=== PATIENT | male | born 1975 | race Caucasian/White ===

== ENCOUNTER 2016-06-07 17:21 | Observation (INO) ==
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
[2016-06-07 18:00] LABS: Bilirubin,Urine Small (Negative); Blood,Urine Negative (Negative); Clarity,Urine Cloudy (Clear); Color,Urine Dark Yellow (Yellow); Glucose,Urine (UA) Normal (Normal); Ketones,Urine Negative (Negative); Leukocyte Esterase,Urine Negative (Negative); Nitrite,Urine Negative (Negative); Protein,Urine 30 mg/dL (Neg-Trace); Specific Gravity,Urine 1.027 (1.010-1.025); Urobilinogen,Urine Normal (Normal)
[2016-06-07 18:03] LABS: Bacteria,Urine None Seen per hpf (None-Few); Hyaline Casts,Urine None Seen per lpf (None-Few); Squamous Epithelial Cell,Urine Many per lpf (None-Few); WBC,Urine 0-3 per hpf (0-3)
[2016-06-07 18:05] LABS: Amphetamine Screen,Urine Negative ng/mL (Cutoff=1000); Barbiturate Screen,Urine Negative ng/mL (Cutoff=200); Benzodiazepines Screen,Urine Negative ng/mL (Cutoff=200); Cannabinoid Screen,Urine Positive ng/mL (Cutoff = 50); Cocaine Screen,Urine Negative ng/mL (Cutoff= 300); Opiate Screen,Urine Negative ng/mL (Cutoff=300); Phencyclidine Screen,Urine Negative ng/mL (Cutoff=25)
[2016-06-07 18:17] LABS: Mucus,Urine Many (Few)
[2016-06-07 18:25] LABS: Hematocrit 40.5 % (37.5-50.1); Hemoglobin 13.6 g/dL (12.9-16.9); Immature Platelets 4.1 % (1.1-6.1); Mean Corpuscular HGB Conc 33.6 g/dL (31.6-35.5); Mean Corpuscular Hemoglobin 28.9 pg (28.0-33.3); Mean Corpuscular Volume 86.2 fL (83.0-100.0); Mean Platelet Volume 9.7 fL (9.4-12.4); Platelet Count 313 K/mcL (140-400); Red Cell Distribution Width 14.5 % (11.5-14.5)
[2016-06-07 18:38] LABS: BUN/Creatinine Ratio 10 (6-26); Blood Urea Nitrogen 9 mg/dL (8-26); Calcium 9.6 mg/dL (8.6-10.8); Carbon Dioxide 24 mEq/L (19-29); Chloride 104 mEq/L (98-109); Glucose 179 mg/dL (70-99); Osmolality,Calculated 293 (280-300); Potassium 3.4 mEq/L (3.5-4.5); Sodium 140 mEq/L (136-145); eGFR For African Americans > 60 (> 60); eGFR For Non-African Americans > 60 (> 60)
[2016-06-07 18:39] LABS: Acetaminophen < 1.0 mcg/mL (10-30); Ethanol < 10 mg/dL (0-10); Salicylate < 5.0 mg/dL (15-30)
[2016-06-07 18:50] LABS: Lymphocytes # 5.3 K/mcL (0.6-4.6); Monocytes # 0.6 K/mcL (0.0-1.3); Neutrophils # 23.7 K/mcL (1.6-8.9)
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
[2016-06-08 00:27] LABS: Albumin 4.2 g/dL (3.5-5.0); Albumin/Globulin Ratio 1.4 (1.1-2.2); Bilirubin,Direct 0.1 mg/dL (0.0-0.5); Bilirubin,Indirect 0.1 mg/dL (0.0-1.2); Bilirubin,Total 0.2 mg/dL (0.2-1.2); Total Protein 7.2 g/dL (6.0-8.3)
[2016-06-08] MEDS ORDERED: *HR* LORazepam 1 MG TABLET PO ONE (01:53)
[2016-06-08] MEDS: Nicotine 14 MG PATCH.TD24 TD SCH ×2 (02:04→09:15)
--- NOTE | 2016-06-08 04:53 | Emergency Department Note ---
START Narrative - START START: For this encounter, I have reviewed the resident, VALUE STREAM COACH, or PA documentation, treatment plan, and medical decision making; and I have had face to face time with this patient. Patient received signout from Dr. Hernandez pending behavioral health evaluation and disposition. Patient has a leukocytosis however he does not have headache, neck pain or any other symptoms despite his psychosis. Patient continues to deny suicidal ideation or homicidal ideation. Patient reports she has been significantly more paranoid over the past week. Behavioral health specialist recommended that he be admitted to the hospital for continuation of his care however they did not feel that he was appropriate to be on the psychiatric floor due to his leukocytosis. Patient will be admitted to the hospitalist with psychiatric consult for continuation of care. Patient is comfortable with the plan.
--- NOTE | 2016-06-08 05:21 | Internal Med History&Physical ---
Date of Encounter: 06/08/16 Time of Encounter: 04:00 Assessment and Plan (1) Leukocytosis Current visit: Yes Status: Acute Patient had WBC of 29.6 with Neutrophils of 23.7- etiology unclear at this time. vitals within normal limits, lactate normal. Patient does not meet SIRS criteria at this time. UDS was positive for marijuana- will repeat. Physical exam does not indicate signs of meningitis. Blood cultures x2 pending Urinalysis did not show signs of UTI. CXR showed no acute process. CT head showed no acute abnormality. CT abdomen/pelvis with IV and oral contrast pending. received 1L bolus x2. CRP, CMV, ESR, influenza swab, EBV monospot test pending. Empiric antibiotics not indicated at this time. Continue to monitor. Qualifiers: Leukocytosis type: unspecified Qualified Code(s): D72.829 - Elevated white blood cell count, unspecified (2) Acute psychosis Current visit: Yes Status: Acute Patient has no psych history. Denies suicidal/homicidal ideation. Since , he has had episodes of extreme paranoia and anxiety. Patient has been under a lot of stress lately with his son going to a juvenile retirement center, and not being able to pay his property taxes. Consult to psychiatry for recommendations. (3) Hypokalemia Current visit: Yes Status: Acute potassium measured at 3.4. Patient received 20 mEq of oral potassium in ED. (4) Marijuana use Current visit: Yes Status: Chronic patient counseled on dangers of illicit drug use. (5) Tobacco abuse Current visit: Yes Status: Acute nicotine patch as needed. (6) DVT prophylaxis Current visit: Yes Status: Acute Heparin SQ Internal Medicine - H&P: HPI Chief complaint: altered mental status Admitted From: Emergency Dept Plans for Post Hospital Care: Home History of present illness: PCP: none Mr. Frank is a 41 year old male with no significant past medical or psych history. He came to the ED with CC of altered mental status. His girlfriend and his sister came to the ED with him. He states that he has had several episodes of paranoia and anxiety that started last . He [place] where there is a lot of drug use. He states that since , he was having episodes of being very scared and paranoid that someone would come and harm him. He would run away, go to his sister's house, shut the door and all the blinds, shut the lights off, and crawl on the floor. Per his sister, he never had any episodes of violence towards others. These episodes of paranoia would last a variable amount of time, and happened multiple times a day. Patient denies suicidal or homicidal ideation. He denies auditory hallucinations. His sister states that he would have visual hallucinations of people standing outside the house waiting for him. Patient has been under a lot of stress recently. His property taxes are due tomorrow, and he does not have the money to pay them. Furthermore, his son was recently sent to a juvenile retirement center, which he is stressed about because he has a very close relationship with his son. Patient denies having a past psych history. He denies subjective fevers, but reports chills. He denies diarrhea. He says he has mild neck pain that is chronic. He denies shortness of breath, and denies being bothered by bright lights. He denies headache, recent trauma, denies concern for STDs. He reports to being very fatigued. He had nausea and two episodes of vomiting on Monday. Recent sick contact includes his son, who had the stomach virus and had nausea and vomiting. Social Hx: lives with his girlfriend and their two children. He smokes 1.5 PPD for the past 30 years. Rarely drinks. Denies history of alcohol abuse. Smokes 1 joint of marijuana per day. He states he always buys his marijuana from the same supplier, and denies use of synthetic marijuana. He denies current or any history of IV drug use. Family Hx: Mom: alive with no reported health problems. Father is alive with no reported health problems. His paternal grandfather of lung cancer. Maternal grandmother had cervical caner. Past Med Surg Social Fam HX - Past Medical History Medical history: no medical history Psychiatric history: no psych history - Social History Smoking Status: Current every day smoker Smokeless Tobacco Status: No Alcohol use: occasionally Drug use: marijuana Internal Medicine - H&P: Meds Allergies No Known Allergies Allergy (Verified 06/07/16 17:23) All Systems PM: A 10-system review of systems was performed and is negative for pertinent findings except as documented above in the HPI. - Constitutional Constitutional: chills, lethargy, no fever(s) - EENT Eyes: no blurry vision, no photophobia, no seeing flashes - Cardiovascular Cardiovascular ROS IM: no dyspnea, no syncope - Respiratory Respiratory: no cough, no dyspnea - Gastrointestinal Gastrointestinal: vomiting (two episodes of vomiting on Monday. ), no abdominal pain, no bloating, no diarrhea, no hematochezia, no melena - Genitourinary Genitourinary ROS male: no hematuria - Musculoskeletal Musculoskeletal ROS IM: neck pain (chronic neck pain) - Neurological Neurological ROS: weakness, no abnormal gait, no abnormal hearing, no dizziness - Psychiatric Psychiatric: anxiety, change in appetite (decreased appetite), visual hallucinations, no auditory hallucinations, no homicidal ideation - Constitutional Vitals: Temp Pulse Resp BP Pulse Ox 0 F L 88 16 128/7 98 06/08/16 04:47 06/08/16 04:25 06/08/16 04:47 06/08/16 04:47 06/08/16 04:25 General appearance: Present: A&O X 3, no acute distress, answers questions appropriately - Head Head exam: Present: atraumatic, normocephalic - Neck Neck exam general surgery: Present: trachea midline. Absent: full ROM (limited range of motion in flexion more than extension), lymphadenopathy, nuchal rigidity Additional comments: kernig and bruzinski's sign were negative. - Respiratory Respiratory exam: Present: rhonchi - Cardiovascular Cardiovascular exam: Present: RRR - GI/Abdominal GI/Abdominal exam: Present: normal bowel sounds, soft. Absent: distended, tenderness - Extremities Exam Extremities exam: Absent: cyanotic, pedal edema, tenderness - Neurological Exam Neurological exam: Present: alert, oriented X3, no focal deficits. Absent: facial droop, speech deficit - Psychiatric Psychiatric exam: Present: normal affect, normal mood. Absent: anxious Internal Med - H&P Results - Labs CBC & Chem 7: 06/07/16 18:01 06/07/16 18:01 Labs: Short CBC 06/07/16 Range/Units 18:01 WBC 29.6 H (4.3-11.1) K/mcL Hgb 13.6 (12.9-16.9) g/dL Hct 40.5 (37.5-50.1) % Plt Count 313 (140-400) K/mcL Neutrophils # 23.7 H (1.6-8.9) K/mcL BMP 06/07/16 18:01 Sodium 140 Potassium 3.4 L Chloride 104 Carbon Dioxide 24 BUN 9 Creatinine 0.90 Glucose 179 H Calcium 9.6 Liver Function 06/08/16 Range/Units 00:06 Total Bilirubin 0.2 (0.2-1.2) mg/dL Direct Bilirubin 0.1 (0.0-0.5) mg/dL AST 12 (5-34) Units/L ALT 16 (0-55) Units/L Alkaline Phosphatase 63 (38-126) Units/L Albumin 4.2 (3.5-5.0) g/dL Urine 06/07/16 Range/Units 17:51 Urine Color Dark Yellow (Yellow) Urine Clarity Cloudy A (Clear) Urine pH 6.0 (5.0-8.0) pH Units Ur Specific [place] 1.027 H (1.010-1.025) Urine Protein 30 H (Neg-Trace) mg/dL Urine Glucose (UA) Normal (Normal) mg/dL - Impressions ITS Impressions Chest X-Ray 06/07/16 18:29 IMPRESSION: No acute process. D/ / Christos Hirsch MD / Christos Hirsch MD Interpreting Provider: Christos Hirsch MD Head CT 06/07/16 23:41 IMPRESSION: No acute intracranial abnormality. D/ / Jimena Norris MD / Jimena Norris MD Interpreting Provider: Jimena Norris MD
[2016-06-08] MEDS ORDERED: Acetaminophen 325 MG TABLET PO PRN (05:37)
[2016-06-08] MEDS ORDERED: Naloxone 0.4 MG/ML INJ IVP PRN (05:37)
[2016-06-08] MEDS ORDERED: Ondansetron 4 MG/2 ML VIAL IVP PRN (05:37)
[2016-06-08] MEDS: 0.9 % Sodium Chloride 2,000 ML IVC ONE ×2 (05:47→06:52)
--- NOTE | 2016-06-08 05:59 | Event Note ---
Date of Encounter: 06/08/16 Time of Encounter: 05:56 Patient seen and examined with medical residents agree with assessment and plan. Briefly patient comes with acute psychosis that is fluctuating in nature. He is alert and oriented times 3 during our interview. Main concern that he is having a light count of 29,000. He had the recent viral syndrome and mentioned that his son was sick before him. Patient has been nauseous for 5 days not eating well and had couple episodes of vomiting chills. Patient also takes marijuana on daily basis. He denies synthetic marijuana. Patients will also on the loss of stress recently. Patient showing no convincing clinical symptoms or signs of meningitis. I will therefore hold off lumbar puncture for now. I will hydrate the patient. CT scan of the abdomen and conscious. Hold of antibiotics.
[2016-06-08 06:01] LABS: Basophils % 0.3 %; Eosinophils # 0.2 K/mcL (0.0-0.6); Eosinophils % 1.4 %; Hematocrit 36.4 % (37.5-50.1); Hemoglobin 12.2 g/dL (12.9-16.9); Immature Granulocytes % 0.2 % (0-4); Immature Platelets 2.9 % (1.1-6.1); Lymphocytes # 3.6 K/mcL (0.6-4.6); Lymphocytes % 31.7 %; Mean Corpuscular HGB Conc 33.5 g/dL (31.6-35.5); Mean Corpuscular Volume 86.5 fL (83.0-100.0); Mean Platelet Volume 9.5 fL (9.4-12.4); Monocytes # 0.7 K/mcL (0.0-1.3); Monocytes % 6.1 %; Neutrophils # 6.8 K/mcL (1.6-8.9); Platelet Count 262 K/mcL (140-400); Red Blood Count 4.21 M/mcL (4.19-5.50); Red Cell Distribution Width 14.6 % (11.5-14.5); Segmented Neutrophils % 60.3 %
[2016-06-08 06:16] LABS: BUN/Creatinine Ratio 10 (6-26); Blood Urea Nitrogen 9 mg/dL (8-26); C-Reactive Protein 4 mg/L (Less than 5); Calcium 9.3 mg/dL (8.6-10.8); Carbon Dioxide 30 mEq/L (19-29); Chloride 106 mEq/L (98-109); Glucose 93 mg/dL (70-99); Osmolality,Calculated 292 (280-300); Sodium 142 mEq/L (136-145); eGFR For African Americans > 60 (> 60); eGFR For Non-African Americans > 60 (> 60)
[2016-06-08] MEDS: *HR* Heparin 5,000 UNIT/ML VIAL SQ SCH ×2 (06:58→18:47)
[2016-06-08 08:34] LABS: Amphetamine Screen,Urine Negative ng/mL (Cutoff=1000); Barbiturate Screen,Urine Negative ng/mL (Cutoff=200); Benzodiazepines Screen,Urine Negative ng/mL (Cutoff=200); Cannabinoid Screen,Urine Positive ng/mL (Cutoff = 50); Cocaine Screen,Urine Negative ng/mL (Cutoff= 300); Opiate Screen,Urine Negative ng/mL (Cutoff=300); Phencyclidine Screen,Urine Negative ng/mL (Cutoff=25)
[2016-06-08] MEDS ORDERED: Nicotine 14 MG PATCH.TD24 TD SCH (09:00)
[2016-06-08] MEDS ORDERED: *HR* LORazepam 0.5 MG TABLET PO ONE (12:57)
[2016-06-08] MEDS: *HR* LORazepam 2 MG/ML VIAL IVP PRN (15:30)
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
--- NOTE | 2016-06-08 17:14 | Internal Med Progress Note ---
Date of Encounter: 06/08/16 Time of Encounter: 11:30 - Assessment and plan (1) Acute psychosis Current Visit: Yes Status: Acute Assessment and plan: Follow psych recs For transfer to psych once WBC is stabilized Continue Ativan prn (2) Leukocytosis Current Visit: Yes Status: Acute Assessment and plan: Possibly from dehydration and acute stress NO current source No suspicion for intracranial infection D/C IVF and rpt CBC a.m Qualifiers: Leukocytosis type: unspecified Qualified Code(s): D72.829 - Elevated white blood cell count, unspecified (3) Tobacco abuse Current Visit: Yes Status: Chronic Assessment and plan: Continue NRT (4) Marijuana use Current Visit: Yes Status: Chronic - Subjective Interval history: 41 Y/O M with no PMH Here for management of acute delirium and paranoid psychosis He had an incidental finding of leukocytosis, without fever Preliminary work up shows no source Head CT, CXR, UA, LFT, Chem, all WNL Influenza, Infectious mononucleosis negative Utox positive for THC Of note, WBC has decreased from 29.6 to 11.4, and patient remains afebrile He remains paranoid and is pending psych eval at my time of review in the a.m - Constitutional Vitals: Temp Pulse Resp BP Pulse Ox 98 F 73 16 108/69 96 06/08/16 15:20 06/08/16 15:20 06/08/16 15:20 06/08/16 15:20 06/08/16 15:20 General appearance: Present: A&O X 3, pleasant, no acute distress, answers questions appropriately - Head Head exam: Present: atraumatic, normocephalic - Eye Eye exam: Present: PERRL, conjuntiva pink, sclera anicteric Pupils: Present: PERRL - Neck Neck exam general surgery: Present: supple, trachea midline. Absent: lymphadenopathy - Respiratory Respiratory exam: Present: CTAB. Absent: accessory muscle use, rales, rhonchi, wheezes - Cardiovascular Cardiovascular exam: Present: RRR, +S1, +S2. Absent: diastolic murmur, gallop, rubs, systolic murmur - GI/Abdominal GI/Abdominal exam: Present: normal bowel sounds, soft, no peritoneal signs. Absent: distended, tenderness - Extremities Exam Extremities exam: Present: warm, radial pulses palpable and symetrical. Absent : calf tenderness, cyanotic, pedal edema - Neurological Exam Neurological exam: Present: CN II-XII intact, oriented X3, no focal deficits. Absent: pronater drift, facial droop, speech deficit - Skin Skin exam: Present: dry, intact Internal Medicine: Result - Labs CBC & Chem 7: 06/08/16 05:49 06/08/16 05:49 Labs: Short CBC 06/08/16 Range/Units 05:49 WBC 11.3 H D (4.3-11.1) K/mcL Hgb 12.2 L (12.9-16.9) g/dL Hct 36.4 L (37.5-50.1) % Plt Count 262 (140-400) K/mcL Neutrophils # 6.8 (1.6-8.9) K/mcL BMP 06/08/16 05:49 Sodium 142 Potassium 4.0 Chloride 106 Carbon Dioxide 30 H BUN 9 Creatinine 0.88 Glucose 93 Calcium 9.3 - Impressions Impressions Abdomen/Pelvis CT 06/08/16 07:30 IMPRESSION: Mild prominence of periportal lucencies likely periportal edema. Findings likely represent a degree of fluid overload although findings are nonspecific and can be seen with underlying hepatitis. Please correlate with patient's liver function test. Otherwise unremarkable study. D/ / 06/08/2016 08:28:06 Lui Vazquez MD / sveta Interpreting Provider: Lui Vazquez MD Consult Discharge Plan - Plan Referrals: NO,PCP [Primary Care Provider] -
[2016-06-09] MEDS ORDERED: Water for inj. (sterile) 10 ML IV ONE (01:00)
[2016-06-09] MEDS: *HR* LORazepam 2 MG/ML VIAL IVP PRN ×2 (01:02→12:32)
[2016-06-09 04:16] LABS: Basophils % 0.3 %; Eosinophils # 0.1 K/mcL (0.0-0.6); Eosinophils % 1.8 %; Hematocrit 36.9 % (37.5-50.1); Immature Granulocytes % 0.1 % (0-4); Lymphocytes # 2.6 K/mcL (0.6-4.6); Lymphocytes % 37.1 %; Mean Corpuscular HGB Conc 32.5 g/dL (31.6-35.5); Mean Corpuscular Volume 86.2 fL (83.0-100.0); Mean Platelet Volume 10.1 fL (9.4-12.4); Monocytes # 0.4 K/mcL (0.0-1.3); Monocytes % 5.8 %; Neutrophils # 3.9 K/mcL (1.6-8.9); Platelet Count 233 K/mcL (140-400); Red Blood Count 4.28 M/mcL (4.19-5.50); Red Cell Distribution Width 14.3 % (11.5-14.5); Segmented Neutrophils % 54.9 %
[2016-06-09 05:45] LABS: Hepatitis A Antibody IgM Nonreactive (Nonreactive); Hepatitis B Core IgM Nonreactive (Nonreactive); Hepatitis B Surface Antigen Nonreactive (Nonreactive); Hepatitis C Virus Antibody Nonreactive (Nonreactive)
[2016-06-09] MEDS: *HR* Heparin 5,000 UNIT/ML VIAL SQ SCH (06:29)
--- NOTE | 2016-06-09 09:00 | Discharge Summary ---
Date of Encounter: 06/09/16 Time of Encounter: 08:59 - Discharge Diagnosis (1) Acute psychosis Priority: Primary Status: Acute (2) Leukocytosis Priority: Primary Status: Resolved Qualifiers: Leukocytosis type: unspecified Qualified Code(s): D72.829 - Elevated white blood cell count, unspecified (3) Tobacco abuse Priority: Secondary Status: Chronic (4) Marijuana use Priority: Secondary Status: Chronic - Discharge Medications Home Medications: No Known Home Drugs 06/08/16 [History] Allergies/Adverse Reactions: Allergies No Known Allergies Allergy (Verified 06/07/16 17:23) Procedures/tests Complete & Pending: Procedures Performed prior 72 hours Category Date Time Status CT abd pelvis w iv and oral [CT] Stat Cat Scan 06/08/16 07:30 Completed Date of admission: 06/08/16 04:43 Primary care physician: PCP NO Consults: 06/08/16 05:38 Consult to Psychiatry [CONS] Stat Consulting Provider: Rosaura Francis Reason for Consult: possible brief psychotic episode Call Completed: No Discharging clinician: Luke Wilson Anticipated date of discharge: 06/09/16 - Patient Status Disposition: Transfer Psychiatric Hosp Condition: Fair Functional capacity at discharge: independent ambulation Overall status at discharge: patient is not back to baseline - Discharge Instructions Instructions: How to Stop Smoking (DC), Brief Psychotic Disorder (DC), Cannabis Abuse (DC) Follow Up With: NO,PCP [Primary Care Provider] - - Diet and Activity Activity: resume usual activities as tolerated Interval History: See below Hospital course: Mr. Frank is a 41 Y/O M with no PMH Here for management of acute delirium and paranoid psychosis He had an incidental finding of leukocytosis, without fever Preliminary work up shows no source Head CT, CXR, UA, LFT, Chem, all WNL Influenza, Infectious mononucleosis negative Utox positive for THC WBC duque since normalized He is stable for transfer to psych in-patient Time spent discussing smoking cessation with patient: 3 to 10 minutes (4 minutes sent with patient and his family discussing tobacco and THC use cessation) - Time Spent with Patient Total time spent providing and/or coordinating discharge services: Less than 30 minutes - Constitutional Vitals: Temp Pulse Resp BP Pulse Ox 98.6 F 50 16 115/54 96 06/09/16 03:02 06/09/16 03:02 06/09/16 03:02 06/09/16 03:02 06/09/16 03:02 General appearance: Present: disheveled, A&O X 3, pleasant, no acute distress, answers questions appropriately - Head Head exam: Present: atraumatic, normocephalic - Eye Eye exam: Present: PERRL, conjuntiva pink, sclera anicteric Pupils: Present: PERRL - Neck Neck exam general surgery: Present: supple, trachea midline. Absent: lymphadenopathy - Respiratory Respiratory exam: Present: CTAB. Absent: accessory muscle use, rales, rhonchi, wheezes - Cardiovascular Cardiovascular exam: Present: RRR, +S1, +S2. Absent: diastolic murmur, gallop, rubs, systolic murmur - GI/Abdominal GI/Abdominal exam: Present: normal bowel sounds, soft, no peritoneal signs. Absent: distended, tenderness - Extremities Exam Extremities exam: Present: warm, radial pulses palpable and symetrical. Absent : calf tenderness, cyanotic, pedal edema - Neurological Exam Neurological exam: Present: CN II-XII intact, oriented X3, no focal deficits. Absent: pronater drift, facial droop, speech deficit - Skin Skin exam: Present: dry, intact
[2016-06-09] MEDS: Nicotine 14 MG PATCH.TD24 TD SCH (09:09)
[2016-06-09 12:26] VITALS: BP 120/68
[2016-06-11 06:55] LABS: CMV Quant by PCR IU <227 IU/mL; CMV Quant by PCR Log IU <2.4 log IU/mL; CMV Quant by PCR copies <390 cpy/mL
[2016-06-13 07:48] LABS: CMV Quant by PCR Log copies <2.6 log cpy/mL
== END 2016-06-09 16:25 ==
LOC: EMEROO 17:21 → 3BNU 17:21 → MERGE 06-08 04:43 → 3BNU 06-08 04:47
PROVIDERS: ADMIT Hospitalist; ATTEND Nurse Practitioner Family

== ENCOUNTER 2016-06-09 15:57 | Inpatient (IN) ==
[2016-06-09] MEDS ORDERED: *HR* LORazepam 1 MG TABLET PO PRN (16:30)
[2016-06-09] MEDS ORDERED: MOM Conc 10 ML UD.LIQ PO PRN (16:30)
[2016-06-09] MEDS ORDERED: *HR* LORazepam 2 MG/ML VIAL IM PRN (16:30)
[2016-06-09] MEDS ORDERED: Mag Hydrox/Al Hydrox/Simeth 30 ML UDC PO PRN (16:30)
[2016-06-09] MEDS ORDERED: Haloperidol Lactate 5 MG/ML VIAL IM PRN (16:30)
[2016-06-09] MEDS ORDERED: Ibuprofen 400 MG TABLET PO PRN (16:30)
[2016-06-09] MEDS ORDERED: hydrOXYzine pamoate 25 MG CAPSULE PO PRN (16:30)
[2016-06-09] MEDS: OLANZapine 10 MG TAB.RAPDIS PO SCH (20:48)
[2016-06-09] MEDS: traZODone 50 MG TABLET PO PRN (21:11)
[2016-06-10] MEDS: Nicotine 21 MG PATCH.TD24 TD SCH (09:42)
--- NOTE | 2016-06-10 15:38 | Psychiatry History & Physical ---
Date of Encounter: 06/10/16 Time of Encounter: 15:32 History of Present Illness Medicare Admission Attestation: For traditional Medicare patients the provided hospital inpatient services are reasonable and necessary and in the case of services not specified as inpatient -only under 42 CFR 419.22 (n), that they are appropriately provided as inpatient services in accordance 42 CFR 412.3. For Critical [facility] Hospital the patient may reasonably be expected to be discharged or transferred to a hospital within 96 hours after admission to the Critical Access Hospital. History of Present Illness: Mr. Frank is a 41 year old male admitted from the medical floor for evaluation of paranoid delusions. Patient was seen in psychiatric consultation at the time. His admission to the medical floor. At that time his mental status was showing paranoia and confusion but also he had leukocytosis that resolved. Medical workup including CT scan of the brain and other investigations returned negative results and after medical clearance he was discharged from medicine to our unit for further evaluation of the paranoia. Patient to me that he had not had any psychiatric treatment but he was hospitalized several times related to substance abuse including alcohol and other drugs or cocaine or marijuana and narcotics currently he is using some marijuana infrequently and determined to stop using in the near future. He denied any previous history of suicidal ideation or self-harm and he is cooperative and interested in treatment. Past Med Surg Social Fam HX - Past Medical History Medical history: no medical history - Past Psychiatric History Psychiatric history: Reports: no psych history - Past Surgical History Surgical History: no surgical history - Social History Smoking Status: Current every day smoker Smokeless Tobacco Status: No Alcohol use: occasionally Drug use: marijuana Medications & Allergies No Known Home Drugs 06/08/16 [History] Allergies No Known Allergies Allergy (Verified 06/07/16 17:23) Mental Status Exam Patient orientation: Yes Person, Yes Time, Yes Place Level of alertness: Alert Patient appearance: Appropriate, Well Groomed, Bizarre Behavior: calm, cooperative Psychomotor activity: Normal Eye contact: Maintains Eye Contact Mood description: Euthymic/stable Affect description: congruent with mood, anxious Speech pattern: Normal rate, Normal rhythm, Normal tone, Clear, Coherent Speech volume: Normal Thought process: Linear, Goal Oriented Thought content: No Suicidal ideation, No Homicidal ideation, Yes Ideas of reference, Yes Paranoid delusion, Yes Obsessive thoughts Perceptual disturbances: No Auditory hallucinations, No Visual hallucinations Attention span: Capable of Focused Attention Memory description: Grossly Intact Patient reliability: Questionable Historian Intelligence estimate: Average Judgment: Limited Insight: Partial Results - Vital Signs Vital signs: Temp Pulse Resp BP 98.6 F 75 16 116/72 06/10/16 09:00 06/10/16 09:00 06/10/16 09:00 06/10/16 09:00 Assessment and Plan (1) Acute psychosis Current visit: No Status: Acute Plan: Admit inpatient for safety and stabilization, Close observation, Suicide Precautions per unit protocol, Encourage participation in unit milieu, Group Therapy, Monitor sleep, Monitor appetite Additional Plan: We will start the patient on Zyprexa 10 mg daily to treat his paranoia and psychosis. Benefits and side effects were explained to patient and he is agreeable to treatment. Risks, benefits, side effects, alternatives discussed w/pt: Yes Patient agreeable to treatment: Yes (2) Marijuana use Current visit: Yes Status: Chronic Plan: Admit inpatient for safety and stabilization, Close observation, Suicide Precautions per unit protocol, Encourage participation in unit milieu, Group Therapy, Monitor sleep, Monitor appetite Risks, benefits, side effects, alternatives discussed w/pt: Yes Patient agreeable to treatment: Yes
[2016-06-10] MEDS: OLANZapine 10 MG TAB.RAPDIS PO SCH (20:41)
[2016-06-10] MEDS: traZODone 50 MG TABLET PO PRN (20:41)
[2016-06-11] MEDS: Nicotine 21 MG PATCH.TD24 TD SCH (09:04)
--- NOTE | 2016-06-11 14:00 | Psychiatry Progress Note ---
Date of Encounter: 06/11/16 Time of Encounter: 15:28 Subjective Interval history: Patient is seen for follow-up. Nursing staff reports he is less paranoid and more cooperative and interacting with peers and staff appropriately. He is compliant with medication and his sleep and appetite are stable. He denied any suicidal ideation or hallucinations. Notes by manager social were reviewed. He tells me that he can trust the staff and his visitors and the doctor and feels more comfortable around people. Review of Systems Psychiatric: Reports: confusion Objective: Exam Patient orientation: Yes Person, Yes Time, Yes Place Level of alertness: Alert Patient appearance: Appropriate, Well Groomed, Bizarre Behavior: calm, cooperative Psychomotor activity: Normal Eye contact: Maintains Eye Contact Mood description: Euthymic/stable Affect description: congruent with mood, anxious Speech pattern: Normal rate, Normal rhythm, Normal tone, Clear, Coherent Speech volume: Normal Thought process: Linear, Goal Oriented, Racing Thought content: No Suicidal ideation, No Homicidal ideation, Yes Ideas of reference, Yes Paranoid delusion, Yes Obsessive thoughts Perceptual disturbances: No Auditory hallucinations, No Visual hallucinations Judgment: Limited Insight: Partial Results - Vital Signs Vital Signs: Temp Pulse Resp BP 98 F 70 16 129/81 06/11/16 09:00 06/11/16 09:00 06/11/16 09:00 06/11/16 09:00 Assessment and Plan (1) Acute psychosis Current visit: No Status: Acute Plan: Continue hospitalization, Close observation, Suicide Precautions per unit protocol, Encourage participation in unit milieu, Group Therapy, Monitor sleep, Monitor appetite Risks, benefits, side effects, alternatives discussed w/pt: Yes Patient agreeable to treatment: Yes (2) Marijuana use Current visit: Yes Status: Chronic Plan: Continue hospitalization, Close observation, Suicide Precautions per unit protocol, Encourage participation in unit milieu, Group Therapy, Monitor sleep, Monitor appetite Risks, benefits, side effects, alternatives discussed w/pt: Yes Patient agreeable to treatment: Yes Consult Discharge Plan - Plan Referrals: [facility] Bob [Outside] Blessing Valladares MD [Non-Partnered Physician] - 06/22/16 1:40 pm (The above appointment is with Dr. Valladares.)
[2016-06-11] MEDS: traZODone 50 MG TABLET PO PRN (21:00)
[2016-06-11] MEDS: OLANZapine 10 MG TAB.RAPDIS PO SCH (21:00)
[2016-06-12] MEDS: traZODone 50 MG TABLET PO PRN (00:42)
[2016-06-12] MEDS: Nicotine 21 MG PATCH.TD24 TD SCH (09:48)
[2016-06-12 10:40] VITALS: BP 137/80
--- NOTE | 2016-06-12 12:54 | Discharge Summary ---
Date of Encounter: 06/12/16 Time of Encounter: 12:49 Diagnosis - Discharge Diagnosis (1) Acute psychosis Priority: Primary Status: Acute (2) Marijuana use Priority: Secondary Status: Chronic Medications - Discharge Medications Prescriptions: OLANZapine [Zyprexa Zydis] 10 mg PO HS #30 tab.rapdis OLANZapine [Zyprexa Zydis] 10 mg PO HS #30 tab.rapdis 06/12/16 [Rx] Allergies No Known Allergies Allergy (Verified 06/07/16 17:23) Provider Date of admission: 06/09/16 15:57 Primary care physician: PCP NO Discharging clinician: Michael Osuna Assessment and Plan - Patient/Caregiver Discharge Instructions Activity: resume usual activities as tolerated Diet: regular diet - Follow up Plan Follow up with: [facility] Bob GUERRA [Outside] Blessing Valladares MD [Non-Partnered Physician] - 06/22/16 1:40 pm (The above appointment is with Dr. Valladares.) Functional capacity at discharge: independent ambulation Overall status at discharge: Stable Disposition: Home, Self-Care Hospital Course Hospital course: Mr. Frank is a 41 year old male admitted from the medical floor after medical stabilization for evaluation and treatment of paranoia. For details of admission please see H&P and consult. On the on the units he was started on olanzapine 10 mg, he reported improved sleep and his mental status cleared he was not delusional or paranoid he was participating in groups and activities. He was more comfortable interacting with staff and peers. Prior to discharge patient was medically stable, there was no evidence of delusion or hallucinations, mood and affect were stable. He showed improved insight and determination not to use any drugs including marijuana. He denied any suicidal ideation and was looking forward to discharge and follow-up. - Time Spent with Patient Total time spent providing and/or coordinating discharge services: Less than 30 minutes Quality - Multiple Antipsychotics Patient discharged on 2 or more antipsychotic medications: No Procedures - Procedures Procedures: Medication Management, Crisis Stabilization, Supportive Therapy, Group Therapy, Psychoeducational Therapy Mental Status Exam - Mental Status Exam Patient orientation: Yes Person, Yes Time, Yes Place Level of alertness: Alert Patient appearance: Appropriate, Well Groomed, Bizarre Behavior: calm, cooperative Psychomotor activity: Normal Eye contact: Maintains Eye Contact Mood description: Euthymic/stable Affect description: congruent with mood, anxious Speech pattern: Normal rate, Normal rhythm, Normal tone, Clear, Coherent Speech Volume: Normal Thought process: Linear, Goal Oriented Thought Content: No Suicidal ideation, No Homicidal ideation Perceptual Disturbances: No Auditory hallucinations, No Visual hallucinations Judgment: Fair Insight: Partial
== END 2016-06-12 13:35 | disposition home or self-care (01) | DRG 751 ==
LOC: 1ANU 15:57
PROVIDERS: ADMIT Psychiatry & Neurology Psychiatry; ATTEND Psychiatry & Neurology Psychiatry

== ENCOUNTER 2017-04-03 13:22 | Inpatient (IN) ==
--- NOTE | 2017-04-03 13:25 | Emergency Department Note ---
Disposition Clinical Impression: Paranoia Schizophrenia Qualifiers: Schizophrenia type: unspecified Qualified Code(s): F20.9 - Schizophrenia, unspecified Disposition: Admitted As Inpatient Condition: Fair Referrals: NONE,PCP [Primary Care Provider] - Forms: ED Satisfaction Letter Time of Disposition: 18:05 Psych HPI - General Chief Complaint: ED Psychiatric Symptoms Stated Complaint: Psych Time Seen by Provider: 04/03/17 13:25 Nursing Notes Reviewed: Yes Vital Signs Reviewed: Yes - History of Present Illness HPI Narrative: Mr. Bolton, 41 -year-old male, presents from home with police for evaluation of paranoia. Patient believes that somebody is willing to kill him. This stems from his son passing away last month from overdose. Patient believes that somebody intentionally overdosed his son, killing him, and this person is also willing to kill him. Person is unknown to the patient. Patient specifically denies suicidality or homicidality. He states he does not want to as he has another child to take care of. Meds: Prescribed Zyprexa 10mg PO QHS - he has not taken his medications for several months. Habits: Current every day smoker. Patient has no complaints and grossly negative review of systems. - Related Data Previous Rx's Medication Instructions Recorded OLANZapine [Zyprexa Zydis] 10 mg PO HS #30 tab.rapdis 06/12/16 Allergies Allergy/AdvReac Type Severity Reaction Status Date / Time No Known Allergies Allergy Verified 06/07/16 17:23 All systems ED: reviewed and negative except as stated. Review of Systems: As Per HPI Past Medical History - Past Medical History Medical history: Reports: no medical history Psychiatric history: Reports: no psych history - Social History Smoking Status: Current every day smoker Smokeless Tobacco Status: No Alcohol use: Reports: occasionally Drug use: Reports: marijuana Physical Exam Vital Signs Reviewed General: Patient is alert, oriented, and in no acute distress. HEENT: No facial asymmetry. Head is normocephalic and atraumatic. PERRLA, EOMI. oral mucosa moist. Trachea midline. Cardiovascular: Heart regular rate and rhythm without clicks, rubs, gallops, or murmurs. No JVD. PMI nondisplaced. Respiratory: Symmetric chest rise with good respiratory effort. Bilateral breath sounds are clear without wheezing, crackles, or rhonchi. Abdomen: Scaphoid. Bowel sounds present normoactive x-4 quadrants. Abdomen is soft, nondistended, and nontender. Musculoskeletal: Spontaneously moving all extremities. Neuro: GCS 15. Alert and oriented 4. Skin: Warm, dry, intact. Psych: Patient's affect is appropriate for situation. He is calm and cooperative at this point. Course Course Narrative: Patient presents for evaluation of paranoia. He has a history of paranoid schizophrenia previously prescribed Zyprexa. He has not been taking his medications for, "several months." He has no other complaints at this time. We will perform workup for medical clearance and consult mental health services. Patient is medically cleared for trial service evaluation. Patient has been accepted to for continued evaluation and management. Vital Signs Temperature 97.9 F 04/03/17 13:26 Pulse Rate 71 04/03/17 13:26 Respiratory Rate 18 04/03/17 13:26 Blood Pressure 147/78 04/03/17 13:26 O2 Sat by Pulse Oximetry 98 04/03/17 13:26 Temperature 97.9 F 04/03/17 13:26 Pulse Rate 71 04/03/17 13:26 Respiratory Rate 18 04/03/17 13:26 Blood Pressure 147/78 04/03/17 13:26 O2 Sat by Pulse Oximetry 98 04/03/17 13:26 Oxygen Delivery Oxygen Delivery Room Air Psych - Lab Data Result diagrams: 04/03/17 13:45 04/03/17 13:45 Lab Results 04/03/17 04/03/17 04/03/17 Range/Units 13:45 13:45 13:45 WBC 10.6 (4.3-11.1) K/mcL RBC 4.72 (4.19-5.50) M/mcL Hgb 13.4 (12.9-16.9) g/dL Hct 40.5 (37.5-50.1) % MCV 85.8 (83.0-100.0) fL MCH 28.4 (28.0-33.3) pg MCHC 33.1 (31.6-35.5) g/dL RDW 14.4 (11.5-14.5) % Plt Count 262 (140-400) K/mcL MPV 9.9 (9.4-12.4) fL Immature Gran % 0.3 (0-4) % Seg Neutrophils % 75.6 % Lymphocytes % 20.2 % Monocytes % 2.9 % Eosinophils % 0.6 % Basophils % 0.4 % Neutrophils # 8.0 (1.6-8.9) K/mcL Lymphocytes # 2.2 (0.6-4.6) K/mcL Monocytes # 0.3 (0.0-1.3) K/mcL Eosinophils # 0.1 (0.0-0.6) K/mcL Basophils # 0.0 (0.0-0.2) K/mcL Sodium 141 (136-145) mEq/L Potassium 4.3 (3.5-4.5) mEq/L Chloride 105 (98-109) mEq/L Carbon Dioxide 34 H (19-29) mEq/L BUN 9 (8-26) mg/dL Creatinine 0.76 (0.72-1.25) mg/dL Est GFR ( Amer) > 60 (> 60) Est GFR (Non-Af Amer) > 60 (> 60) BUN/Creatinine Ratio 12 (6-26) Glucose 108 H (70-99) mg/dL Calculated Osmolality 291 (280-300) Calcium 9.8 (8.6-10.8) mg/dL Total Bilirubin 0.3 (0.2-1.2) mg/dL Direct Bilirubin 0.2 (0.0-0.5) mg/dL Indirect Bilirubin 0.1 (0.0-1.2) mg/dL AST 18 (5-34) Units/L ALT 19 (0-55) Units/L Alkaline Phosphatase 73 (38-126) Units/L Serum Total Protein 7.6 (6.0-8.3) g/dL Albumin 4.4 (3.5-5.0) g/dL Globulin 3.2 (2.4-3.5) g/dL Albumin/Globulin Ratio 1.4 (1.1-2.2) TSH 1.367 (0.350-4.840) mcIU/mL Urine Color (Yellow) Urine Clarity (Clear) Urine pH (5.0-8.0) pH Units Ur Specific [place] (1.010-1.025) Urine Protein (Neg-Trace) mg/dL Urine Glucose (UA) (Normal) mg/dL Urine Ketones (Negative) mg/dL Urine Blood (Negative) Urine Nitrite (Negative) Urine Bilirubin (Negative) Urine Urobilinogen (Normal) mg/dL Ur Leukocyte Esterase (Negative) Salicylates < 5.0 L (15-30) mg/dL Urine Opiates Screen (Hgjirv=515) ng/mL Acetaminophen < 1.0 L (10-30) mcg/mL Ur Barbiturates Screen (Csduel=407) ng/mL Ur Phencyclidine Scrn (Cutoff=25) ng/mL Ur Amphetamines Screen (Xpcust=1464) ng/mL U Benzodiazepines Scrn (Nxwsle=076) ng/mL Urine Cocaine Screen (Cutoff= 300) ng/mL U Marijuana (THC) Screen (Cutoff = 50) ng/mL Ethyl Alcohol < 10 (0-10) mg/dL 04/03/17 04/03/17 Range/Units 13:53 13:53 WBC (4.3-11.1) K/mcL RBC (4.19-5.50) M/mcL Hgb (12.9-16.9) g/dL Hct (37.5-50.1) % MCV (83.0-100.0) fL MCH (28.0-33.3) pg MCHC (31.6-35.5) g/dL RDW (11.5-14.5) % Plt Count (140-400) K/mcL MPV (9.4-12.4) fL Immature Gran % (0-4) % Seg Neutrophils % % Lymphocytes % % Monocytes % % Eosinophils % % Basophils % % Neutrophils # (1.6-8.9) K/mcL Lymphocytes # (0.6-4.6) K/mcL Monocytes # (0.0-1.3) K/mcL Eosinophils # (0.0-0.6) K/mcL Basophils # (0.0-0.2) K/mcL Sodium (136-145) mEq/L Potassium (3.5-4.5) mEq/L Chloride (98-109) mEq/L Carbon Dioxide (19-29) mEq/L BUN (8-26) mg/dL Creatinine (0.72-1.25) mg/dL Est GFR ( Amer) (> 60) Est GFR (Non-Af Amer) (> 60) BUN/Creatinine Ratio (6-26) Glucose (70-99) mg/dL Calculated Osmolality (280-300) Calcium (8.6-10.8) mg/dL Total Bilirubin (0.2-1.2) mg/dL Direct Bilirubin (0.0-0.5) mg/dL Indirect Bilirubin (0.0-1.2) mg/dL AST (5-34) Units/L ALT (0-55) Units/L Alkaline Phosphatase (38-126) Units/L Serum Total Protein (6.0-8.3) g/dL Albumin (3.5-5.0) g/dL Globulin (2.4-3.5) g/dL Albumin/Globulin Ratio (1.1-2.2) TSH (0.350-4.840) mcIU/mL Urine Color Yellow (Yellow) Urine Clarity Clear (Clear) Urine pH 7.0 (5.0-8.0) pH Units Ur Specific [place] 1.020 (1.010-1.025) Urine Protein Negative (Neg-Trace) mg/dL Urine Glucose (UA) Normal (Normal) mg/dL Urine Ketones Negative (Negative) mg/dL Urine Blood Negative (Negative) Urine Nitrite Negative (Negative) Urine Bilirubin Negative (Negative) Urine Urobilinogen Normal (Normal) mg/dL Ur Leukocyte Esterase Negative (Negative) Salicylates (15-30) mg/dL Urine Opiates Screen Negative (Mmbcxr=459) ng/mL Acetaminophen (10-30) mcg/mL Ur Barbiturates Screen Negative (Abwspw=937) ng/mL Ur Phencyclidine Scrn Negative (Cutoff=25) ng/mL Ur Amphetamines Screen Negative (Pdrjqr=5347) ng/mL U Benzodiazepines Scrn Negative (Fxoply=435) ng/mL Urine Cocaine Screen Negative (Cutoff= 300) ng/mL U Marijuana (THC) Screen Positive H (Cutoff = 50) ng/mL Ethyl Alcohol (0-10) mg/dL - EKG Data EKG attestation: Yes I reviewed and interpreted this EKG. EKG results narrative: EKG dated 03 April 2017 at 14:06 interpreted as sinus bradycardia with a rate of 55. Normal intervals appear 127, QRS 100, QT/QTC 413/402. Early repolarization in midline precordial leads as a comparative EKG; no reciprocal changes. Compared to previous dated 04/03/2002 shows no acute ischemic changes or comparison. Psychiatric Medical Clearance - Medical Clearance Checklist Medical History: Schizophrenia (Acute) Paranoia (Acute) Acute psychosis (Acute) Leukocytosis (Resolved) DVT prophylaxis (Acute) Tobacco abuse (Chronic) Marijuana use (Chronic) Hypokalemia (Acute) No Social History Section defined Current Vitals: Last Vital Signs Temp 97.9 F 04/03/17 13:26 Pulse 71 04/03/17 13:26 Resp 18 04/03/17 13:26 BP 147/78 04/03/17 13:26 Pulse Ox 98 04/03/17 13:26 Psychiatric Lab Panel: Drug Levels and Toxicity 04/03/17 04/03/17 13:45 13:53 Urine Opiates Screen Negative Acetaminophen < 1.0 L Ur Barbiturates Screen Negative Ur Phencyclidine Scrn Negative Ur Amphetamines Screen Negative U Benzodiazepines Scrn Negative Urine Cocaine Screen Negative U Marijuana (THC) Screen Positive H Ethyl Alcohol < 10 Abnormal Labs: Abnormal lab results Carbon Dioxide 34 mEq/L (19-29) H 04/03/17 13:45 Glucose 108 mg/dL (70-99) H 04/03/17 13:45 Salicylates < 5.0 mg/dL (15-30) L 04/03/17 13:45 Acetaminophen < 1.0 mcg/mL (10-30) L 04/03/17 13:45 U Marijuana (THC) Screen Positive ng/mL (Cutoff = 50) H 04/03/17 13:53 Attestation Statement - Attestation Attestation: I, Markus Ogden DO, examined this patient [id number] and my medical decision-making was reviewed with Dr. Jerod España, Resident Physician. I agree with the documented findings, disposition and treatment plan as described except to the extent set forth below. Please see my progress notes for details. Patient presents emergency room the care of EMS for evaluation of paranoid schizophrenia. Currently does not have an active suicidal ideation but according to family he did describe some aspect of his suicidal complaint. He has no history of suicidal ideation. Patient has had history of psychiatric issues. He did just have a son who did overdose within the last several weeks to months. Patient denies any recent illnesses, and no other new medical conditions at this time. Patient had medical clearance completed. Psychiatric team arrival. See detailed documentation of the physical exam, medical medical decision making and disposition and there is a physician's note. 1500 1a contacted medically cleared 1800 Patient has medical clearance completed and will be admitted to our facility for definitive management
[2017-04-03 13:55] LABS: Basophils % 0.4 %; Eosinophils # 0.1 K/mcL (0.0-0.6); Eosinophils % 0.6 %; Hematocrit 40.5 % (37.5-50.1); Hemoglobin 13.4 g/dL (12.9-16.9); Immature Granulocytes % 0.3 % (0-4); Lymphocytes # 2.2 K/mcL (0.6-4.6); Lymphocytes % 20.2 %; Mean Corpuscular HGB Conc 33.1 g/dL (31.6-35.5); Mean Corpuscular Hemoglobin 28.4 pg (28.0-33.3); Mean Corpuscular Volume 85.8 fL (83.0-100.0); Mean Platelet Volume 9.9 fL (9.4-12.4); Monocytes # 0.3 K/mcL (0.0-1.3); Monocytes % 2.9 %; Platelet Count 262 K/mcL (140-400); Red Blood Count 4.72 M/mcL (4.19-5.50); Red Cell Distribution Width 14.4 % (11.5-14.5); Segmented Neutrophils % 75.6 %
[2017-04-03 13:59] LABS: Bilirubin,Urine Negative (Negative); Blood,Urine Negative (Negative); Clarity,Urine Clear (Clear); Color,Urine Yellow (Yellow); Glucose,Urine (UA) Normal (Normal); Ketones,Urine Negative (Negative); Leukocyte Esterase,Urine Negative (Negative); Nitrite,Urine Negative (Negative); Protein,Urine Negative (Neg-Trace); Urobilinogen,Urine Normal (Normal)
[2017-04-03 14:05] LABS: Amphetamine Screen,Urine Negative ng/mL (Cutoff=1000); Barbiturate Screen,Urine Negative ng/mL (Cutoff=200); Benzodiazepines Screen,Urine Negative ng/mL (Cutoff=200); Cannabinoid Screen,Urine Positive ng/mL (Cutoff = 50); Cocaine Screen,Urine Negative ng/mL (Cutoff= 300); Opiate Screen,Urine Negative ng/mL (Cutoff=300); Phencyclidine Screen,Urine Negative ng/mL (Cutoff=25)
[2017-04-03 14:07] LABS: BUN/Creatinine Ratio 12 (6-26); Blood Urea Nitrogen 9 mg/dL (8-26); Calcium 9.8 mg/dL (8.6-10.8); Carbon Dioxide 34 mEq/L (19-29); Chloride 105 mEq/L (98-109); Glucose 108 mg/dL (70-99); Osmolality,Calculated 291 (280-300); Potassium 4.3 mEq/L (3.5-4.5); Sodium 141 mEq/L (136-145); eGFR For African Americans > 60 (> 60); eGFR For Non-African Americans > 60 (> 60)
[2017-04-03 14:09] LABS: Albumin 4.4 g/dL (3.5-5.0); Albumin/Globulin Ratio 1.4 (1.1-2.2); Bilirubin,Direct 0.2 mg/dL (0.0-0.5); Bilirubin,Indirect 0.1 mg/dL (0.0-1.2); Bilirubin,Total 0.3 mg/dL (0.2-1.2); Globulin 3.2 g/dL (2.4-3.5); Total Protein 7.6 g/dL (6.0-8.3)
[2017-04-03 14:37] LABS: Acetaminophen < 1.0 mcg/mL (10-30); Ethanol < 10 mg/dL (0-10)
[2017-04-03 14:38] LABS: Salicylate < 5.0 mg/dL (15-30)
[2017-04-03 14:57] LABS: Thyroid Stimulating Hormone 1.367 mcIU/mL (0.350-4.840)
[2017-04-03] MEDS ORDERED: Mag Hydrox/Al Hydrox/Simeth 30 ML UDC PO PRN (19:15)
[2017-04-03] MEDS ORDERED: Acetaminophen 325 MG TABLET PO PRN (19:15)
[2017-04-03] MEDS ORDERED: Haloperidol Lactate 5 MG/ML VIAL IM PRN (19:15)
[2017-04-03] MEDS ORDERED: MOM Conc 10 ML UD.LIQ PO PRN (19:15)
[2017-04-03] MEDS ORDERED: *HR* LORazepam 1 MG TABLET PO PRN (19:15)
[2017-04-03] MEDS ORDERED: *HR* LORazepam 2 MG/ML VIAL IM PRN (19:15)
[2017-04-03] MEDS ORDERED: OLANZapine 5 MG TAB.RAPDIS PO ONE (19:30)
[2017-04-03] MEDS: traZODone 50 MG TABLET PO PRN (20:22)
[2017-04-03] MEDS: Nicotine 21 MG PATCH.TD24 TD SCH (20:25)
--- NOTE | 2017-04-04 07:46 | Electrocardiograph Report ---
[facility] Date: 2017-04-03 Pat Name: Jose Luis Frank Department: 103 Room: 1A22 Gender: M Administrative Professional: EKP : [id number] Requested By: Jerod España Order Number: [id number] Reading MD: Bryce Liu DO Measurements Intervals [place] Rate: 55 P: 51 GA: 127 QRS: 85 QRSD: 100 T: 49 QT: 413 QTc: 402 Interpretive Statements SINUS BRADYCARDIA ST ELEVATION, PROBABLY EARLY REPOLARIZATION [ST ELEVATION WITH NORMALLY INFLECTED T WAVE] Electronically Signed On 04-04-2017 7:44:37 EST by Bryce Lui DO
[2017-04-04] MEDS: Nicotine 21 MG PATCH.TD24 TD SCH (08:11)
--- NOTE | 2017-04-04 10:02 | Psychiatry History & Physical ---
Date of Encounter: 04/04/17 Time of Encounter: 09:35 History of Present Illness Patient Stated Chief Complaint: i just get paranoid Medicare Admission Attestation: For traditional Medicare patients the provided hospital inpatient services are reasonable and necessary and in the case of services not specified as inpatient -only under 42 CFR 419.22 (n), that they are appropriately provided as inpatient services in accordance 42 CFR 412.3. For Critical Access Hospital the patient may reasonably be expected to be discharged or transferred to a hospital within 96 hours after admission to the Critical Access Hospital. Admitted From: Emergency Dept Plans for Post Hospital Care: Home History of Present Illness: Mr. Frank is a 41 year old male evaluated today , admitted from ER where he presented with acute psychosis. h/o psychosis and marijuana use , he was admitted in 06/17 to this unit, and had similar presentation. he at present feels being sabotaged and watched , my son was murdered and now they are trying to turn whole world against me, i have trust issues , he admits to hearing voices off and on and denies visual hallucination feels unhappy and sad about my son and i can not sleep well bc i am scared some one will come to my house and hurt my family. He told his Girl friend why don"t you put bullet in my head , he is at present depressed, auditory hallucinations and extremely paranoid, asking me to check his social security # and address as it might be different AGIL, HE HAS derailment of thought process.at times tangential. he has been using Marijuana , denies other drugs. he is on suboxone for several months , last dose yesterday as per him and i dropped my bottle in the box at police station. he agrees to suicidal thoughts but no plan , i will not for my son ,denies homicidal thoughts. Past Med Surg Social Fam HX - Past Medical History Source: patient Medical history: no medical history - Past Psychiatric History Psychiatric history: Reports: depression, previous psychiatric hospitalization, other Family psychiatric history: Yes Family History of Suicide: None - Social History Smoking Status: Current every day smoker Smokeless Tobacco Status: No Alcohol use: rarely, occasionally Drug use: marijuana Occupational status: unemployed Current living situation: Home - Independent Activity Level: Independent ambulation Recent Out of Country Travel Within the Last 8 Weeks: No Exposure or Possible Exposure to Illness During Travel: No Medications & Allergies Buprenorphine HCl/Naloxone HCl [Suboxone 8 mg-2 mg Sl Film] 2 film SL DAILY 09/14 [History] 3 Allergy/AdvReac Type Severity Reaction Status Date / Time No Known Allergies Allergy Verified 04/04/17 08:52 Review of Systems Psychiatric: Reports: depression, abnormal sleep pattern, suicidal ideation, change in appetite, auditory hallucinations Mental Status Exam Patient orientation: Yes Person, Yes Time, Yes Place Level of alertness: Alert Patient appearance: Appropriate Behavior: cooperative, distractible Psychomotor activity: Increased Eye contact: Minimal Contact Mood description: Depressed Affect description: congruent with mood Speech pattern: Disorganized Speech volume: Normal Thought process: Circumstantial, Tangential, Racing Thought content: Yes Paranoid delusion Perceptual disturbances: Yes Auditory hallucinations Attention span: Unable to Sustain Attention Memory description: Grossly Intact Patient reliability: Questionable Historian Intelligence estimate: Average Judgment: Poor Insight: Minimal Exam - HEENT Head exam IM: Present: normal inspection Eye exam IM: Present: normal appearance ENT exam IM: Present: normal exam - Neurological Neurological exam IM: Present: alert, normal gait, oriented X3, no focal deficits - Additional Information Additional Information: tattoo on left arm. Results - Vital Signs Vital signs: Temp Pulse Resp BP Pulse Ox 98.4 F 79 14 131/89 98 04/04/17 08:56 04/04/17 08:56 04/04/17 08:56 04/04/17 08:56 04/03/17 13:26 - Labs Labs: Laboratory Last Values WBC 10.6 K/mcL (4.3-11.1) 04/03/17 13:45 RBC 4.72 M/mcL (4.19-5.50) 04/03/17 13:45 Hgb 13.4 g/dL (12.9-16.9) 04/03/17 13:45 Hct 40.5 % (37.5-50.1) 04/03/17 13:45 MCV 85.8 fL (83.0-100.0) 04/03/17 13:45 MCH 28.4 pg (28.0-33.3) 04/03/17 13:45 MCHC 33.1 g/dL (31.6-35.5) 04/03/17 13:45 RDW 14.4 % (11.5-14.5) 04/03/17 13:45 Plt Count 262 K/mcL (140-400) 04/03/17 13:45 MPV 9.9 fL (9.4-12.4) 04/03/17 13:45 Immature Gran % 0.3 % (0-4) 04/03/17 13:45 Seg Neutrophils % 75.6 % 04/03/17 13:45 Lymphocytes % 20.2 % 04/03/17 13:45 Monocytes % 2.9 % 04/03/17 13:45 Eosinophils % 0.6 % 04/03/17 13:45 Basophils % 0.4 % 04/03/17 13:45 Neutrophils # 8.0 K/mcL (1.6-8.9) 04/03/17 13:45 Lymphocytes # 2.2 K/mcL (0.6-4.6) 04/03/17 13:45 Monocytes # 0.3 K/mcL (0.0-1.3) 04/03/17 13:45 Eosinophils # 0.1 K/mcL (0.0-0.6) 04/03/17 13:45 Basophils # 0.0 K/mcL (0.0-0.2) 04/03/17 13:45 Sodium 141 mEq/L (136-145) 04/03/17 13:45 Potassium 4.3 mEq/L (3.5-4.5) 04/03/17 13:45 Chloride 105 mEq/L (98-109) 04/03/17 13:45 Carbon Dioxide 34 mEq/L (19-29) H 04/03/17 13:45 BUN 9 mg/dL (8-26) 04/03/17 13:45 Creatinine 0.76 mg/dL (0.72-1.25) 04/03/17 13:45 Est GFR ( Amer) > 60 (> 60) 04/03/17 13:45 Est GFR (Non-Af Amer) > 60 (> 60) 04/03/17 13:45 BUN/Creatinine Ratio 12 (6-26) 04/03/17 13:45 Glucose 108 mg/dL (70-99) H 04/03/17 13:45 Calculated Osmolality 291 (280-300) 04/03/17 13:45 Calcium 9.8 mg/dL (8.6-10.8) 04/03/17 13:45 Total Bilirubin 0.3 mg/dL (0.2-1.2) 04/03/17 13:45 Direct Bilirubin 0.2 mg/dL (0.0-0.5) 04/03/17 13:45 Indirect Bilirubin 0.1 mg/dL (0.0-1.2) 04/03/17 13:45 AST 18 Units/L (5-34) 04/03/17 13:45 ALT 19 Units/L (0-55) 04/03/17 13:45 Alkaline Phosphatase 73 Units/L (38-126) 04/03/17 13:45 Serum Total Protein 7.6 g/dL (6.0-8.3) 04/03/17 13:45 Albumin 4.4 g/dL (3.5-5.0) 04/03/17 13:45 Globulin 3.2 g/dL (2.4-3.5) 04/03/17 13:45 Albumin/Globulin Ratio 1.4 (1.1-2.2) 04/03/17 13:45 TSH 1.367 mcIU/mL (0.350-4.840) 04/03/17 13:45 Urine Color Yellow (Yellow) 04/03/17 13:53 Urine Clarity Clear (Clear) 04/03/17 13:53 Urine pH 7.0 pH Units (5.0-8.0) 04/03/17 13:53 Ur Specific Dixon 1.020 (1.010-1.025) 04/03/17 13:53 Urine Protein Negative mg/dL (Neg-Trace) 04/03/17 13:53 Urine Glucose (UA) Normal mg/dL (Normal) 04/03/17 13:53 Urine Ketones Negative mg/dL (Negative) 04/03/17 13:53 Urine Blood Negative (Negative) 04/03/17 13:53 Urine Nitrite Negative (Negative) 04/03/17 13:53 Urine Bilirubin Negative (Negative) 04/03/17 13:53 Urine Urobilinogen Normal mg/dL (Normal) 04/03/17 13:53 Ur Leukocyte Esterase Negative (Negative) 04/03/17 13:53 Salicylates < 5.0 mg/dL (15-30) L 04/03/17 13:45 Urine Opiates Screen Negative ng/mL (Zkxmvk=671) 04/03/17 13:53 Acetaminophen < 1.0 mcg/mL (10-30) L 04/03/17 13:45 Ur Barbiturates Screen Negative ng/mL (Ejociz=214) 04/03/17 13:53 Ur Phencyclidine Scrn Negative ng/mL (Cutoff=25) 04/03/17 13:53 Ur Amphetamines Screen Negative ng/mL (Katpll=8131) 04/03/17 13:53 U Benzodiazepines Scrn Negative ng/mL (Nbllga=132) 04/03/17 13:53 Urine Cocaine Screen Negative ng/mL (Cutoff= 300) 04/03/17 13:53 U Marijuana (THC) Screen Positive ng/mL (Cutoff = 50) H 04/03/17 13:53 Ethyl Alcohol < 10 mg/dL (0-10) 04/03/17 13:45 Assessment and Plan (1) Major depressive disorder with psychotic features Current visit: Yes Status: Acute Plan: Admit inpatient for safety and stabilization, Close observation, Suicide Precautions per unit protocol, Encourage participation in unit milieu, Monitor sleep, Monitor appetite, Secure weapons, Family/Supportive other meeting Risks , benefits, side effects, alternatives discussed w/pt: Yes Patient agreeable to treatment: Yes Plans for Post Hospital Care: at Home Qualifiers: Major depression recurrence: recurrent Active/Remission status: currently active Major depression episode severity: severe Qualified Code(s): F33.3 - Major depressive disorder, recurrent, severe with psychotic symptoms (2) Marijuana use Current visit: No Status: Chronic Plan: Admit inpatient for safety and stabilization, Suicide Precautions per unit protocol, Group Therapy, Monitor sleep Risks, benefits, side effects, alternatives discussed w/pt: Yes Patient agreeable to treatment: Yes Plans for Post Hospital Care: at Home
[2017-04-04] MEDS: OLANZapine 10 MG TAB.RAPDIS PO SCH (20:06)
[2017-04-04] MEDS: traZODone 50 MG TABLET PO PRN (20:06)
[2017-04-05] MEDS: Nicotine 21 MG PATCH.TD24 TD SCH (08:17)
--- NOTE | 2017-04-05 10:52 | Psychiatry Progress Note ---
Date of Encounter: 04/05/17 Time of Encounter: 10:30 Subjective Interval history: Patient seen today , case d/w treatment team , he is compliant with treatment plan but is not interacting, still paranoid and internally preoccupied. I am thinking about my son a lot, my mind is not straight. denies side effects. feeling unhappy , sad but not suicidal , he feels people watching me and may harm me, they harmed my son . i feel sometimes something in my food. he is significantly depress and paranoid. at present need inpatient stabilization Review of Systems Psychiatric: Reports: depression, abnormal sleep pattern, suicidal ideation, change in appetite, auditory hallucinations Objective: Exam Patient orientation: Yes Person, Yes Time, Yes Place Level of alertness: Alert Patient appearance: Appropriate Behavior: cooperative, withdrawn Psychomotor activity: Slowed Eye contact: Minimal Contact Mood description: Depressed, Anxious Affect description: congruent with mood Speech pattern: Coherent, Slowed Speech volume: Normal Thought process: Perseveration Thought content: Yes Preoccupation, Yes Paranoid delusion, Yes Nihilistic delusion Judgment: Limited Insight: Partial Results - Vital Signs Vital Signs: Temp Pulse Resp BP Pulse Ox 98.7 F 66 16 131/78 98 04/04/17 19:27 04/04/17 19:27 04/04/17 19:27 04/04/17 19:27 04/03/17 13:26 Assessment and Plan (1) Major depressive disorder with psychotic features Current visit: Yes Status: Acute Risks, benefits, side effects, alternatives discussed w/pt: Yes Patient agreeable to treatment: Yes Qualifiers: Major depression recurrence: recurrent Active/Remission status: currently active Major depression episode severity: severe Qualified Code(s): F33.3 - Major depressive disorder, recurrent, severe with psychotic symptoms (2) Marijuana use Current visit: No Status: Chronic Risks, benefits, side effects, alternatives discussed w/pt: Yes Patient agreeable to treatment: Yes Consult Discharge Plan - Plan Referrals: [facility] [Outside] (The above appointment is with Saritha Daily for outpatient psychiatric assessment and medication management services. Please arrive 30 minutes early to complete paperwork. Please bring your photo ID (bring proof of address if you do not have an ID) and medication list. The above appointment(s) reflects first availability. You may contact the office regularly to check for cancellations that may allow you to be seen sooner. Additionally, the new therapeutic case manager assigned to you will contact you directly to schedule your intake appointment for case management and mental health counseling services. )
[2017-04-05] MEDS: traZODone 50 MG TABLET PO PRN (19:55)
[2017-04-05] MEDS: OLANZapine 10 MG TAB.RAPDIS PO SCH (19:55)
[2017-04-05] MEDS: Ammonium Lactate 30 APPL/225 GM BOTTLE TP SCH (19:56)
[2017-04-06] MEDS: Ammonium Lactate 30 APPL/225 GM BOTTLE TP SCH ×2 (07:59→20:25)
[2017-04-06] MEDS: Nicotine 21 MG PATCH.TD24 TD SCH (07:59)
--- NOTE | 2017-04-06 10:49 | Psychiatry Progress Note ---
Date of Encounter: 04/06/17 Time of Encounter: 10:30 Subjective Interval history: Patient seen today , case d/w treatment team and chart reviewed. states i feel little better , as i slept good last night, feels depress and lack of motivation, psychosis still present,paranoid and delusional. he does not feel safe out side , states i am scared they will harm me, they are using my identity. denies side effects Review of Systems Psychiatric: Reports: depression, abnormal sleep pattern, suicidal ideation, change in appetite, auditory hallucinations Objective: Exam Patient orientation: Yes Person, Yes Time, Yes Place Level of alertness: Alert Patient appearance: Appropriate Behavior: cooperative, anxious Psychomotor activity: Slowed Eye contact: Maintains Eye Contact Mood description: Depressed, Anxious Affect description: constricted Speech pattern: Slowed Speech volume: Soft/Quiet Thought process: Slowed Thinking Thought content: Yes Preoccupation, Yes Paranoid delusion Perceptual disturbances: Yes Reacting to internal stimuli Judgment: Limited Insight: Partial Results - Vital Signs Vital Signs: Temp Pulse Resp BP Pulse Ox 98.9 F 67 16 133/79 98 04/06/17 08:49 04/06/17 08:49 04/06/17 08:49 04/06/17 08:49 04/03/17 13:26 Assessment and Plan (1) Major depressive disorder with psychotic features Current visit: Yes Status: Acute Risks, benefits, side effects, alternatives discussed w/pt: Yes Patient agreeable to treatment: Yes Qualifiers: Major depression recurrence: recurrent Active/Remission status: currently active Major depression episode severity: severe Qualified Code(s): F33.3 - Major depressive disorder, recurrent, severe with psychotic symptoms (2) Marijuana use Current visit: No Status: Chronic Risks, benefits, side effects, alternatives discussed w/pt: Yes Patient agreeable to treatment: Yes Consult Discharge Plan - Plan Referrals: [facility] [Outside] - 04/13/17 2:45 pm (The above appointment is with Sourav Galvin for primary health care, medication management services and Vivitrol assessment and treatment if indicated. Please arrive 15 minutes early for your new patient appointment, and bring the following items with you: insurance card (if you do not have insurance bring proof of income to apply for the sliding fee scale), photo ID, and any medication you take in the original bottles. If you are unable to bring these items, your appointment will be rescheduled. If you are unable to keep this appointment, 24 hour business notice of cancellation is expected. If you miss your new patient appointment, you cannot be re-scheduled in this practice for 3 months. This practice does not prescribe narcotics or see [facility] benefit recipients. ) [facility] [Outside] - 05/18/17 9:00 am (The above appointment is with Saritha Daily for outpatient psychiatric assessment and medication management services. Please arrive 30 minutes early to complete paperwork. Please bring your photo ID (bring proof of address if you do not have an ID) and medication list. The above appointment(s) reflects first availability. You may contact the office regularly to check for cancellations that may allow you to be seen sooner. Additionally, the new binder caser assigned to you will contact you directly to schedule your intake appointment for case management and mental health counseling services. )
[2017-04-06] MEDS: OLANZapine 10 MG TAB.RAPDIS PO SCH (20:23)
[2017-04-06] MEDS: traZODone 50 MG TABLET PO PRN (20:26)
[2017-04-07] MEDS: Nicotine 21 MG PATCH.TD24 TD SCH (09:09)
[2017-04-07] MEDS: Ammonium Lactate 30 APPL/225 GM BOTTLE TP SCH ×2 (09:09→20:21)
--- NOTE | 2017-04-07 11:31 | Psychiatry Progress Note ---
Date of Encounter: 04/07/17 Time of Encounter: 11:15 Subjective Interval history: Patient seen today , case d/w treatment team . states doing better , slept well , depression still there, paranoia improving and still isolative and no interaction with peers but is out in day room . denies side effects. eating has improved. Review of Systems Psychiatric: Reports: depression, abnormal sleep pattern, suicidal ideation, change in appetite, auditory hallucinations Objective: Exam Patient orientation: Yes Person, Yes Time, Yes Place Level of alertness: Alert Patient appearance: Appropriate Behavior: calm, cooperative, withdrawn Psychomotor activity: Slowed Eye contact: Maintains Eye Contact Mood description: Depressed Affect description: congruent with mood Speech pattern: Slowed Speech volume: Normal Thought process: Intact Thought content: Yes Preoccupation, Yes Paranoid delusion Judgment: Limited Insight: Partial Results - Vital Signs Vital Signs: Temp Pulse Resp BP Pulse Ox 98.2 F 67 16 130/78 98 04/07/17 08:49 04/07/17 08:49 04/07/17 08:49 04/07/17 08:49 04/03/17 13:26 Assessment and Plan (1) Major depressive disorder with psychotic features Current visit: Yes Status: Acute Risks, benefits, side effects, alternatives discussed w/pt: Yes Patient agreeable to treatment: Yes Qualifiers: Major depression recurrence: recurrent Active/Remission status: currently active Major depression episode severity: severe Qualified Code(s): F33.3 - Major depressive disorder, recurrent, severe with psychotic symptoms (2) Marijuana use Current visit: No Status: Chronic Risks, benefits, side effects, alternatives discussed w/pt: Yes Patient agreeable to treatment: Yes Consult Discharge Plan - Plan Referrals: [facility] [Outside] - 04/13/17 2:45 pm (The above appointment is with Sourav Galvin for primary health care, medication management services and Vivitrol assessment and treatment if indicated. Please arrive 15 minutes early for your new patient appointment, and bring the following items with you: insurance card (if you do not have insurance bring proof of income to apply for the sliding fee scale), photo ID, and any medication you take in the original bottles. If you are unable to bring these items, your appointment will be rescheduled. If you are unable to keep this appointment, 24 hour business notice of cancellation is expected. If you miss your new patient appointment, you cannot be re-scheduled in this practice for 3 months. This practice does not prescribe narcotics or see [facility] benefit recipients. ) [facility] [Outside] - 05/18/17 9:00 am (The above appointment is with Saritha Daily for outpatient psychiatric assessment and medication management services. Please arrive 30 minutes early to complete paperwork. Please bring your photo ID (bring proof of address if you do not have an ID) and medication list. The above appointment(s) reflects first availability. You may contact the office regularly to check for cancellations that may allow you to be seen sooner. Additionally, the new special education case manager assigned to you will contact you directly to schedule your intake appointment for case management and mental health counseling services. )
[2017-04-07] MEDS: traZODone 50 MG TABLET PO PRN (20:21)
[2017-04-07] MEDS: OLANZapine 10 MG TAB.RAPDIS PO SCH (20:21)
[2017-04-07] MEDS: hydrOXYzine pamoate 25 MG CAPSULE PO PRN (23:01)
[2017-04-08] MEDS ORDERED: traZODone 50 MG TABLET PO ONE (01:19)
--- NOTE | 2017-04-08 08:34 | Psychiatry Progress Note ---
Date of Encounter: 04/08/17 Time of Encounter: 08:10 Subjective Interval history: Patient seen today , case d/w staff . Patient still paranoid, less guarded, has been isolative, sleep not good, last night given extra trazodone . denies side effects. slow improvement in his psychosis and depression. continue monitoring . will increase trazodone to 100 mg hs. Review of Systems Psychiatric: Reports: depression, abnormal sleep pattern, suicidal ideation, change in appetite, auditory hallucinations Objective: Exam Patient orientation: Yes Person, Yes Time, Yes Place Level of alertness: Alert Patient appearance: Appropriate Behavior: cooperative, anxious Psychomotor activity: Normal Eye contact: Minimal Contact Mood description: Depressed Affect description: constricted Speech pattern: Coherent Speech volume: Normal Thought content: Yes Preoccupation, Yes Paranoid delusion Judgment: Limited Insight: Partial Results - Vital Signs Vital Signs: Temp Pulse Resp BP Pulse Ox 97.2 F L 72 16 145/94 98 04/07/17 20:41 04/07/17 20:41 04/07/17 20:41 04/07/17 20:41 04/03/17 13:26 Assessment and Plan (1) Major depressive disorder with psychotic features Current visit: Yes Status: Acute Risks, benefits, side effects, alternatives discussed w/pt: Yes Patient agreeable to treatment: Yes Qualifiers: Major depression recurrence: recurrent Active/Remission status: currently active Major depression episode severity: severe Qualified Code(s): F33.3 - Major depressive disorder, recurrent, severe with psychotic symptoms (2) Marijuana use Current visit: No Status: Chronic Risks, benefits, side effects, alternatives discussed w/pt: Yes Patient agreeable to treatment: Yes Consult Discharge Plan - Plan Referrals: [facility] [Outside] - 04/13/17 2:45 pm (The above appointment is with Sourav Galvin for primary health care, medication [facility]. Please arrive 15 minutes early for your new patient appointment, and bring the following items with you: insurance card (if you do not have insurance bring proof of income to apply for the sliding fee scale), photo ID, and any medication you take in the original bottles. If you are unable to bring these items, your appointment will be rescheduled. If you are unable to keep this appointment, 24 hour business notice of cancellation is expected. If you miss your new patient appointment, you cannot be re-scheduled in this practice for 3 months. This practice does not prescribe narcotics or see [facility] benefit recipients. ) [facility] [Outside] - 05/18/17 9:00 am (The above appointment is with Saritha Daily for outpatient psychiatric assessment and medication management services. Please arrive 30 minutes early to complete paperwork. Please bring your photo ID (bring proof of address if you do not have an ID) and medication list. The above appointment(s) reflects first availability. You may contact the office regularly to check for cancellations that may allow you to be seen sooner. Additionally, the new case worker assigned to you will contact you directly to schedule your intake appointment for case management and mental health counseling services. )
[2017-04-08] MEDS: Nicotine 21 MG PATCH.TD24 TD SCH (09:52)
[2017-04-08] MEDS: Ammonium Lactate 30 APPL/225 GM BOTTLE TP SCH ×2 (09:53→20:13)
[2017-04-08] MEDS: hydrOXYzine pamoate 25 MG CAPSULE PO PRN ×2 (15:31→22:19)
[2017-04-08] MEDS: traZODone 50 MG TABLET PO SCH (20:12)
[2017-04-08] MEDS: OLANZapine 10 MG TAB.RAPDIS PO SCH (20:13)
[2017-04-08] MEDS: traZODone 50 MG TABLET PO PRN (22:19)
[2017-04-09] MEDS ORDERED: *HR* LORazepam 1 MG TABLET PO ONE (01:49)
[2017-04-09] MEDS: Ammonium Lactate 30 APPL/225 GM BOTTLE TP SCH ×2 (10:15→20:46)
[2017-04-09] MEDS: Nicotine 21 MG PATCH.TD24 TD SCH (10:15)
--- NOTE | 2017-04-09 14:52 | Psychiatry Progress Note ---
Date of Encounter: 04/09/17 Time of Encounter: 14:50 Subjective Interval history: Patient seen up on Behavioral Health Unit. He reports he is anxious today and is requesting Ativan. Reports he did not sleep well last night. States his appetite has been okay today. He denies SI, HI, baxter. Review of Systems Psychiatric: Reports: depression, anxiety, abnormal sleep pattern. Denies: suicidal ideation, change in appetite, auditory hallucinations Objective: Exam Level of alertness: Alert Patient appearance: Appropriate Behavior: nervous Psychomotor activity: Normal Eye contact: Maintains Eye Contact Mood description: Anxious Affect description: congruent with mood Speech pattern: Normal rate, Normal rhythm, Normal tone Speech volume: Normal Thought process: Intact Thought content: Yes Preoccupation Results - Vital Signs Vital Signs: Temp Pulse Resp BP Pulse Ox 98.7 F 96 18 121/82 98 04/09/17 09:00 04/09/17 09:00 04/09/17 09:00 04/09/17 09:00 04/03/17 13:26 Consult Discharge Plan - Plan Referrals: [facility] [Outside] - 04/13/17 2:45 pm (The above appointment is with Sourav Galvin for primary health care, medication management services and [facility] assessment and treatment if indicated. Please arrive 15 minutes early for your new patient appointment, and bring the following items with you: insurance card (if you do not have insurance bring proof of income to apply for the sliding fee scale), photo ID, and any medication you take in the original bottles. If you are unable to bring these items, your appointment will be rescheduled. If you are unable to keep this appointment, 24 hour business notice of cancellation is expected. If you miss your new patient appointment, you cannot be re-scheduled in this practice for 3 months. This practice does not prescribe narcotics or see [facility] benefit recipients. ) [facility] [Outside] - 05/18/17 9:00 am (The above appointment is with Saritha Grullon for outpatient psychiatric assessment and medication management services. Please arrive 30 minutes early to complete paperwork. Please bring your photo ID (bring proof of address if you do not have an ID) and medication list. The above appointment(s) reflects first availability. You may contact the office regularly to check for cancellations that may allow you to be seen sooner. Additionally, the new case manager specialist assigned to you will contact you directly to schedule your intake appointment for case management and mental health counseling services. )
[2017-04-09] MEDS: traZODone 50 MG TABLET PO SCH (20:22)
[2017-04-09] MEDS: OLANZapine 10 MG TAB.RAPDIS PO SCH (20:22)
[2017-04-09] MEDS: hydrOXYzine pamoate 25 MG CAPSULE PO PRN (20:23)
[2017-04-09] MEDS: *HR* LORazepam 1 MG TABLET PO PRN (20:26)
[2017-04-09] MEDS ORDERED: traZODone 50 MG TABLET PO PRN (21:00)
[2017-04-10] MEDS: Nicotine 21 MG PATCH.TD24 TD SCH (08:15)
[2017-04-10] MEDS: Ammonium Lactate 30 APPL/225 GM BOTTLE TP SCH ×2 (08:17→20:50)
--- NOTE | 2017-04-10 13:44 | Psychiatry Progress Note ---
Date of Encounter: 04/10/17 Time of Encounter: 13:42 Review of Systems Psychiatric: Reports: depression, anxiety, abnormal sleep pattern. Denies: suicidal ideation, change in appetite, auditory hallucinations Objective: Exam Patient orientation: Yes Person, Yes Time, Yes Place, Yes Circumstance Level of alertness: Alert Patient appearance: Unkempt Behavior: cooperative Psychomotor activity: Slowed Eye contact: Maintains Eye Contact Mood description: Depressed Affect description: flat Speech pattern: Normal rhythm Speech volume: No variation in volume Thought process: Slowed Thinking Thought content: Yes Paranoid delusion Perceptual disturbances: Yes Auditory hallucinations Judgment: Fair Insight: Partial Additional Findings: Obsessions, some questioning Results - Vital Signs Vital Signs: Temp Pulse Resp BP Pulse Ox 98.2 F 90 18 139/90 98 04/10/17 09:00 04/10/17 09:00 04/10/17 09:00 04/10/17 09:00 04/03/17 13:26 - Drug Levels and Toxicology Drug Levels and Toxicology: THC + Opioids Assessment and Plan (1) Opioid dependence w/opioid-induced psychotic disorder w/delusions Current visit: Yes Status: Acute (2) Major depressive disorder with psychotic features Current visit: Yes Status: Acute Risks, benefits, side effects, alternatives discussed w/pt: Yes Patient agreeable to treatment: Yes Qualifiers: Major depression recurrence: recurrent Active/Remission status: currently active Major depression episode severity: severe Qualified Code(s): F33.3 - Major depressive disorder, recurrent, severe with psychotic symptoms (3) Marijuana use Current visit: No Status: Chronic Risks, benefits, side effects, alternatives discussed w/pt: Yes Patient agreeable to treatment: Yes Consult Discharge Plan - Plan Referrals: [facility] [place] [Outside] - 04/13/17 2:45 pm (The above appointment is with Sourav Galvin for primary health care, medication management services and Vivitrol assessment and treatment if indicated. Please arrive 15 minutes early for your new patient appointment, and bring the following items with you: insurance card (if you do not have insurance bring proof of income to apply for the sliding fee scale), photo ID, and any medication you take in the original bottles. If you are unable to bring these items, your appointment will be rescheduled. If you are unable to keep this appointment, 24 hour business notice of cancellation is expected. If you miss your new patient appointment, you cannot be re-scheduled in this practice for 3 months. This practice does not prescribe narcotics or see [facility] benefit recipients. ) [facility] [place] [Outside] - 05/18/17 9:00 am (The above appointment is with Saritha Daily for outpatient psychiatric assessment and medication management services. Please arrive 30 minutes early to complete paperwork. Please bring your photo ID (bring proof of address if you do not have an ID) and medication list. The above appointment(s) reflects first availability. You may contact the office regularly to check for cancellations that may allow you to be seen sooner. Additionally, the new heel caser assigned to you will contact you directly to schedule your intake appointment for case management and mental health counseling services. )
[2017-04-10] MEDS: *HR* LORazepam 1 MG TABLET PO PRN ×2 (14:40→20:48)
[2017-04-10] MEDS: OLANZapine 10 MG TAB.RAPDIS PO SCH (20:48)
[2017-04-10] MEDS: traZODone 50 MG TABLET PO SCH (20:48)
[2017-04-10] MEDS: hydrOXYzine pamoate 25 MG CAPSULE PO PRN (21:05)
[2017-04-11] MEDS: Nicotine 21 MG PATCH.TD24 TD SCH (08:19)
[2017-04-11] MEDS: Ammonium Lactate 30 APPL/225 GM BOTTLE TP SCH (08:21)
[2017-04-11 08:24] VITALS: BP 143/91
--- NOTE | 2017-04-11 09:49 | Discharge Summary ---
Date of Encounter: 04/11/17 Time of Encounter: 09:49 Diagnosis - Discharge Diagnosis (1) Opioid dependence w/opioid-induced psychotic disorder w/delusions Priority: Secondary (resolved) Status: Resolved (2) Major depressive disorder with psychotic features Priority: Primary Status: Acute Qualifiers: Major depression recurrence: recurrent Active/Remission status: currently active Major depression episode severity: severe Qualified Code(s): F33.3 - Major depressive disorder, recurrent, severe with psychotic symptoms (3) Marijuana use Status: Chronic Medications - Discharge Medications Prescriptions: Escitalopram [Lexapro] 10 mg PO DAILY 30 Days #30 tablet hydrOXYzine pamoate [HydrOXYzine Pamoate] 50 mg PO TID PRN #90 capsule PRN Reason: Anxiety Quetiapine Fumarate [Seroquel] 100 mg PO HS PRN 30 Days #30 tablet PRN Reason: Sleep traZODone [TraZODone] 100 mg PO HS 30 Days #30 tablet Escitalopram [Lexapro] 10 mg PO DAILY 30 Days #30 tablet 04/11/17 [Rx] Quetiapine Fumarate [Seroquel] 100 mg PO HS PRN 30 Days #30 tablet 04/11/17 [Rx] hydrOXYzine pamoate [HydrOXYzine Pamoate] 50 mg PO TID PRN #90 capsule 04/11/17 [Rx] traZODone [TraZODone] 100 mg PO HS 30 Days #30 tablet 04/11/17 [Rx] 3 Allergy/AdvReac Type Severity Reaction Status Date / Time No Known Allergies Allergy Verified 04/04/17 08:52 Results Procedures and tests throughout hospitalization: The laboratory tests were essentially within normal limits. The patient did have THC in his urine. There were no opiates found. The drug screen did not include Suboxone - Impressions The patient and I discussed naltrexone. Specifically the patient should wait until 04/17/2017 before starting oral naltrexone or being considered for the medicine intramuscular naltrexone. He will also have follow-up for psychiatric medication. Provider Date of admission: 04/03/17 18:19 Primary care physician: ANNE NONE Discharging clinician: Frank Galeas Assessment and Plan - Patient/Caregiver Discharge Instructions Activity: resume usual activities as tolerated Diet: regular diet Additional Instructions: Avoid alcohol and drugs of abuse - Follow up Plan Follow up with: [facility] [place] [Outside] - 04/13/17 2:45 pm (The above appointment is with Sourav Galvin for primary health care, medication management services and [facility] if indicated. Please arrive 15 minutes early for your new patient appointment, and bring the following items with you: insurance card (if you do not have insurance bring proof of income to apply for the sliding fee scale), photo ID, and any medication you take in the original bottles. If you are unable to bring these items, your appointment will be rescheduled. If you are unable to keep this appointment, 24 hour business notice of cancellation is expected. If you miss your new patient appointment, you cannot be re-scheduled in this practice for 3 months. This practice does not prescribe narcotics or see [facility] benefit recipients. ) [facility] [Outside] - 05/18/17 9:00 am (The above appointment is with Saritha Grullon for outpatient psychiatric assessment and medication management services. Please arrive 30 minutes early to complete paperwork. Please bring your photo ID (bring proof of address if you do not have an ID) and medication list. The above appointment(s) reflects first availability. You may contact the office regularly to check for cancellations that may allow you to be seen sooner. Additionally, the new lining caser assigned to you will contact you directly to schedule your intake appointment for case management and mental health counseling services. ) Functional capacity at discharge: independent ambulation Overall status at discharge: Stable Disposition: Home, Self-Care Hospital Course Hospital course: Mr. Frank is a 41 year old male He was admitted 04/03/2017. This was the last day that he took his Suboxone. The patient had paranoid delusions and depressive symptoms. This was over the grief surrounding the mysterious of his young adult son. The patient described conspiracy. He had evidence of thought disorder. She had thought blocking. Initially he slept well but he began to develop difficulty with restless legs. He used when necessary Ativan. The patient reported less paranoia. He identified reasonable steps to take after the passing the son. He felt that Suboxone was not helpful for him. He requested to be evaluated for naltrexone. The patient was seen the day of discharge and had improved mood residual sadness blunted affect but thought content that was large is still suspicious circumstances surround of his son and respectful remembrance is focused on his current family issues and resposibilities Time spent discussing smoking cessation with patient: 3 to 10 minutes Does patient wish to continue nicotine replacement upon disc: No - Time Spent with Patient Total time spent providing and/or coordinating discharge services: 24 mintes Less than 30 minutes Quality - Multiple Antipsychotics Patient discharged on 2 or more antipsychotic medications: No - Justification Documentation of: Other justification (n/a) Procedures - Procedures Procedures: Medication Management (see discussion) Mental Status Exam - Mental Status Exam Patient orientation: Yes Person, Yes Time, Yes Place Level of alertness: Alert Patient appearance: Appropriate, Well Groomed Behavior: calm, cooperative Psychomotor activity: Normal Eye contact: Maintains Eye Contact Mood description: Euthymic/stable Affect description: congruent with mood, full range, constricted Speech pattern: Normal rate, Normal rhythm, Monotone Speech Volume: Normal Thought process: Linear, Goal Oriented Thought Content: Yes Intact (noted), No Suicidal ideation, No Homicidal ideation , No Overt delusions Perceptual Disturbances: No Auditory hallucinations, No Visual hallucinations Judgment: Fair Insight: Partial
== END 2017-04-11 10:50 | disposition home or self-care (01) | DRG 751 ==
LOC: EMEROO 13:22 → SUATTDRO 18:19 → 1ANU 18:19
PROVIDERS: ADMIT Psychiatry & Neurology Psychiatry; ATTEND Psychiatry & Neurology Forensic Psychiatry

== ENCOUNTER 2017-12-11 15:10 | Inpatient (IN) ==
--- NOTE | 2017-12-11 15:48 | Emergency Department Note ---
Disposition Clinical Impression: Paranoia Psychosis Qualifiers: Psychosis type: unspecified psychosis type Qualified Code(s): F29 - Unspecified psychosis not due to a substance or known physiological condition Disposition: Admitted As Inpatient Condition: Good Referrals: NONE,PCP [Primary Care Provider] - Forms: ED Satisfaction Letter Time of Disposition: 20:36 Psych HPI - General Chief Complaint: ED Psychiatric Symptoms Stated Complaint: SI Time Seen by Provider: 12/11/17 15:17 Source: patient, family, EMS Mode of arrival: EMS Limitations: no limitations Nursing Notes Reviewed: Yes Vital Signs Reviewed: Yes - History of Present Illness HPI Narrative: This is a 42 y/o male with a Hx of psychosis who comes by EMS for worsening paranoia since 11/14/17, especially bad over the past week. gGirlfriend states he won't leave the house because of his paranoia. He reports auditory hallucinations but no visual hallucinations. - Related Data Previous Rx's Medication Instructions Recorded Escitalopram [Lexapro] 10 mg PO DAILY 30 Days #30 tablet 04/11/17 Quetiapine Fumarate [Seroquel] 100 mg PO HS PRN 30 Days #30 tablet 04/11/17 hydrOXYzine pamoate [HydrOXYzine 50 mg PO TID PRN #90 capsule 04/11/17 Pamoate] traZODone [TraZODone] 100 mg PO HS 30 Days #30 tablet 04/11/17 Allergies Allergy/AdvReac Type Severity Reaction Status Date / Time No Known Allergies Allergy Verified 04/04/17 08:52 All systems ED: reviewed and negative except as stated. Psychiatric: Reports: other (paranoia, auditory hallucinations) Past Medical History - Past Medical History Medical history: Reports: no medical history Psychiatric history: Reports: anxiety, depression, previous psychiatric hospitalization, other - Social History Smoking Status: Current every day smoker Smokeless Tobacco Status: No Alcohol use: Reports: rarely, occasionally Drug use: Reports: marijuana Physical Exam - General Limitations: no limitations General appearance: alert, in no apparent distress - Eye Eye exam: Present: normal appearance, PERRL, EOMI - ENT ENT exam: normal exam, normal oropharynx, mucous membranes moist - Neck Neck exam: Present: normal inspection, full ROM, trachea midline - Chest Chest inspection: Present: normal inspection, symmetric chest wall rise - Respiratory Respiratory exam: Present: normal lung sounds bilaterally - Cardiovascular Cardiovascular exam: Present: regular rate, normal rhythm, normal heart sounds - Abdominal Exam Abdominal exam: Present: soft, Non-Tender. Absent: tenderness, distention, guarding, rebound, rigidity - Extremities Exam Extremities exam: Present: normal inspection, full ROM. Absent: tenderness, pedal edema - Neurological Exam Neurological exam: Present: alert, oriented X3 - Psychiatric Psychiatric exam: Present: other (paranoia). Absent: homicidal ideation, suicidal ideation - Skin Skin exam: Present: warm, dry, intact, normal color Course Vital Signs Temperature 98.1 F 12/11/17 15:13 Pulse Rate 82 12/11/17 15:13 Respiratory Rate 18 12/11/17 15:13 Blood Pressure 154/95 12/11/17 15:13 O2 Sat by Pulse Oximetry 98 12/11/17 15:13 Temperature 98.1 F 12/11/17 15:13 Pulse Rate 82 12/11/17 15:13 Respiratory Rate 18 12/11/17 15:13 Blood Pressure 154/95 12/11/17 15:13 O2 Sat by Pulse Oximetry 98 12/11/17 15:13 Oxygen Delivery Oxygen Delivery Room Air Psych - MDM Narrative Medical decision making narrative: This is a 42-year-old male with a history of psychosis with an apparent exacerbation. He was seen by psychiatry with the recommendation of admission. - Lab Data Lab results narrative: CBC, BMP, and UA were unremarkable Salicylates, acetaminophen, and alcohol were low Drug screen Result diagrams: 12/11/17 15:54 12/11/17 15:54 Lab Results 12/11/17 12/11/17 12/11/17 Range/Units 15:24 15:47 15:54 WBC 10.0 (4.3-11.1) K/mcL RBC 4.89 (4.19-5.50) M/mcL Hgb 13.9 (12.9-16.9) g/dL Hct 40.7 (37.5-50.1) % MCV 83.2 (83.0-100.0) fL MCH 28.4 (28.0-33.3) pg MCHC 34.2 (31.6-35.5) g/dL RDW 13.7 (11.5-14.5) % Plt Count 289 (140-400) K/mcL MPV 9.6 (9.4-12.4) fL Immature Gran % 0.4 (0-4) % Seg Neutrophils % 72.0 % Lymphocytes % 21.3 % Monocytes % 5.6 % Eosinophils % 0.4 % Basophils % 0.3 % Neutrophils # 7.2 (1.6-8.9) K/mcL Lymphocytes # 2.1 (0.6-4.6) K/mcL Monocytes # 0.6 (0.0-1.3) K/mcL Eosinophils # 0.0 (0.0-0.6) K/mcL Basophils # 0.0 (0.0-0.2) K/mcL Sodium (136-145) mEq/L Potassium (3.5-5.1) mEq/L Chloride (98-107) mEq/L Carbon Dioxide (23-29) mEq/L BUN (6-20) mg/dL Creatinine (0.70-1.30) mg/dL Est GFR ( Amer) (> 60) Est GFR (Non-Af Amer) (> 60) BUN/Creatinine Ratio (6-26) Glucose (70-105) mg/dL Calculated Osmolality (280-300) Calcium (8.6-10.3) mg/dL Urine Color Yellow (Yellow) Urine Clarity Clear (Clear) Urine pH 7.0 (5.0-8.0) pH Units Ur Specific [place] 1.016 (1.010-1.025) Urine Protein Negative (Neg-Trace) mg/dL Urine Glucose (UA) Normal (Normal) mg/dL Urine Ketones Negative (Negative) mg/dL Urine Blood Negative (Negative) Urine Nitrite Negative (Negative) Urine Bilirubin Negative (Negative) Urine Urobilinogen Normal (Normal) mg/dL Ur Leukocyte Esterase Negative (Negative) Salicylates (15.0-30.0) mg/dL Urine Opiates Screen Negative (Lmtyim=735) ng/mL Acetaminophen (10-20) mcg/mL Ur Barbiturates Screen Negative (Hkfhso=577) ng/mL Ur Phencyclidine Scrn Negative (Cutoff=25) ng/mL Ur Amphetamines Screen Negative (Xpjrom=7752) ng/mL U Benzodiazepines Scrn Negative (Kfzmoa=745) ng/mL Urine Cocaine Screen Negative (Cutoff= 300) ng/mL U Marijuana (THC) Screen Negative (Cutoff = 50) ng/mL Ur Drug Screen Interp See Below Ethyl Alcohol (Less than 10) mg/dL 12/11/17 Range/Units 15:54 WBC (4.3-11.1) K/mcL RBC (4.19-5.50) M/mcL Hgb (12.9-16.9) g/dL Hct (37.5-50.1) % MCV (83.0-100.0) fL MCH (28.0-33.3) pg MCHC (31.6-35.5) g/dL RDW (11.5-14.5) % Plt Count (140-400) K/mcL MPV (9.4-12.4) fL Immature Gran % (0-4) % Seg Neutrophils % % Lymphocytes % % Monocytes % % Eosinophils % % Basophils % % Neutrophils # (1.6-8.9) K/mcL Lymphocytes # (0.6-4.6) K/mcL Monocytes # (0.0-1.3) K/mcL Eosinophils # (0.0-0.6) K/mcL Basophils # (0.0-0.2) K/mcL Sodium 140 (136-145) mEq/L Potassium 3.7 (3.5-5.1) mEq/L Chloride 106 (98-107) mEq/L Carbon Dioxide 28 (23-29) mEq/L BUN 8 (6-20) mg/dL Creatinine 0.77 (0.70-1.30) mg/dL Est GFR ( Amer) > 60 (> 60) Est GFR (Non-Af Amer) > 60 (> 60) BUN/Creatinine Ratio 10 (6-26) Glucose 106 H (70-105) mg/dL Calculated Osmolality 289 (280-300) Calcium 9.4 (8.6-10.3) mg/dL Urine Color (Yellow) Urine Clarity (Clear) Urine pH (5.0-8.0) pH Units Ur Specific [place] (1.010-1.025) Urine Protein (Neg-Trace) mg/dL Urine Glucose (UA) (Normal) mg/dL Urine Ketones (Negative) mg/dL Urine Blood (Negative) Urine Nitrite (Negative) Urine Bilirubin (Negative) Urine Urobilinogen (Normal) mg/dL Ur Leukocyte Esterase (Negative) Salicylates < 2.5 L (15.0-30.0) mg/dL Urine Opiates Screen (Dwgzjj=951) ng/mL Acetaminophen < 10 L (10-20) mcg/mL Ur Barbiturates Screen (Jpfpdj=746) ng/mL Ur Phencyclidine Scrn (Cutoff=25) ng/mL Ur Amphetamines Screen (Rqqvns=6075) ng/mL U Benzodiazepines Scrn (Mvwzlb=382) ng/mL Urine Cocaine Screen (Cutoff= 300) ng/mL U Marijuana (THC) Screen (Cutoff = 50) ng/mL Ur Drug Screen Interp Ethyl Alcohol < 10 (Less than 10) mg/dL Psychiatric Medical Clearance - Medical Clearance Checklist Does the patient have a NEW psychiatric condition?: No Medical History: No Social History Section defined Current Vitals: Last Vital Signs Temp 98.1 F 12/11/17 15:13 Pulse 82 12/11/17 15:13 Resp 18 12/11/17 15:13 BP 154/95 12/11/17 15:13 Pulse Ox 98 12/11/17 15:13 Psychiatric Lab Panel: Drug Levels and Toxicity 12/11/17 12/11/17 15:47 15:54 Urine Opiates Screen Negative Acetaminophen < 10 L Ur Barbiturates Screen Negative Ur Phencyclidine Scrn Negative Ur Amphetamines Screen Negative U Benzodiazepines Scrn Negative Urine Cocaine Screen Negative U Marijuana (THC) Screen Negative Ethyl Alcohol < 10 Abnormal Labs: Abnormal lab results Glucose 106 mg/dL (70-105) H 12/11/17 15:54 Salicylates < 2.5 mg/dL (15.0-30.0) L 12/11/17 15:54 Acetaminophen < 10 mcg/mL (10-20) L 12/11/17 15:54 Statement of Medical Clearance: I have evaluated the patient, reviewed diagnostic information, and certify that the patient's medical condition is sufficiently stable that transfer to the psychiatric unit does not pose a significant risk of deterioration.
[2017-12-11 16:10] LABS: Basophils % 0.3 %; Eosinophils % 0.4 %; Hematocrit 40.7 % (37.5-50.1); Hemoglobin 13.9 g/dL (12.9-16.9); Immature Granulocytes % 0.4 % (0-4); Lymphocytes # 2.1 K/mcL (0.6-4.6); Lymphocytes % 21.3 %; Mean Corpuscular HGB Conc 34.2 g/dL (31.6-35.5); Mean Corpuscular Hemoglobin 28.4 pg (28.0-33.3); Mean Corpuscular Volume 83.2 fL (83.0-100.0); Mean Platelet Volume 9.6 fL (9.4-12.4); Monocytes # 0.6 K/mcL (0.0-1.3); Monocytes % 5.6 %; Neutrophils # 7.2 K/mcL (1.6-8.9); Platelet Count 289 K/mcL (140-400); Red Blood Count 4.89 M/mcL (4.19-5.50); Red Cell Distribution Width 13.7 % (11.5-14.5)
[2017-12-11 16:25] LABS: Acetaminophen < 10 mcg/mL (10-20); BUN/Creatinine Ratio 10 (6-26); Blood Urea Nitrogen 8 mg/dL (6-20); Calcium 9.4 mg/dL (8.6-10.3); Carbon Dioxide 28 mEq/L (23-29); Chloride 106 mEq/L (98-107); Ethanol < 10 mg/dL (Less than 10); Glucose 106 mg/dL (70-105); Osmolality,Calculated 289 (280-300); Potassium 3.7 mEq/L (3.5-5.1); Salicylate < 2.5 mg/dL (15.0-30.0); Sodium 140 mEq/L (136-145); eGFR For Non-African Americans > 60 (> 60)
[2017-12-11 16:47] LABS: Bilirubin,Urine Negative (Negative); Blood,Urine Negative (Negative); Clarity,Urine Clear (Clear); Color,Urine Yellow (Yellow); Glucose,Urine (UA) Normal (Normal); Ketones,Urine Negative (Negative); Leukocyte Esterase,Urine Negative (Negative); Nitrite,Urine Negative (Negative); Protein,Urine Negative (Neg-Trace); Specific Gravity,Urine 1.016 (1.010-1.025); Urobilinogen,Urine Normal (Normal)
[2017-12-11 17:08] LABS: Amphetamine Screen,Urine Negative ng/mL (Cutoff=1000); Barbiturate Screen,Urine Negative ng/mL (Cutoff=200); Benzodiazepines Screen,Urine Negative ng/mL (Cutoff=200); Cannabinoid Screen,Urine Negative ng/mL (Cutoff = 50); Cocaine Screen,Urine Negative ng/mL (Cutoff= 300); Opiate Screen,Urine Negative ng/mL (Cutoff=300); Phencyclidine Screen,Urine Negative ng/mL (Cutoff=25)
[2017-12-11] MEDS ORDERED: *HR* LORazepam 1 MG TABLET PO PRN (20:42)
[2017-12-11] MEDS ORDERED: MOM Conc 10 ML UD.LIQ PO PRN (20:42)
[2017-12-11] MEDS ORDERED: Mag Hydrox/Al Hydrox/Simeth 30 ML UDC PO PRN (20:42)
[2017-12-11] MEDS ORDERED: Haloperidol Lactate 5 MG/ML VIAL IM PRN (20:42)
[2017-12-11] MEDS ORDERED: *HR* LORazepam 2 MG/ML VIAL IM PRN (20:42)
--- NOTE | 2017-12-12 10:46 | Psychiatry History & Physical ---
Date of Encounter: 12/12/17 Time of Encounter: 10:36 History of Present Illness Patient Stated Chief Complaint: Suicidal ideation and paranoia Medicare Admission Attestation: For traditional Medicare patients the provided hospital inpatient services are reasonable and necessary and in the case of services not specified as inpatient -only under 42 CFR 419.22 (n), that they are appropriately provided as inpatient services in accordance 42 CFR 412.3. For [facility] the patient may reasonably be expected to be discharged or transferred to a hospital within 96 hours after admission to the Critical [facility]. Admitted From: Emergency Dept History of Present Illness: Mr. Frank is a 42 year old male admitted from the emergency department for suicidal ideation and paranoia. His girlfriend reported patient has been increasingly fearful and paranoid did not leave the house for 2 weeks, afraid to eat or drink because she may poison him. He believe people are watching him and go after him. Has been off medication for 6-8 months. He did not follow- up after discharge from his last admission. UDS was negative. Patient is dealing with the loss of his son who apparently overdosed on drugs or alcohol. He feels hopeless and helpless, he believes he is better off . He has thoughts about crashing his car to kill himself. He is not sleeping or eating appropriately. Past Med Surg Social Fam HX - Past Medical History Medical history: no medical history - Past Psychiatric History Psychiatric history: Reports: depression, schizophrenia, previous psychiatric hospitalization Past psychiatric history details: Hospitalized in March 2017 at [facility] for depression and substance abuse - Social History Smoking Status: Current every day smoker Smokeless Tobacco Status: No Alcohol use: rarely, occasionally Drug use: marijuana Medications & Allergies Escitalopram [Lexapro] 10 mg PO DAILY 30 Days #30 tablet 04/11/17 [Rx] hydrOXYzine pamoate [HydrOXYzine Pamoate] 50 mg PO TID PRN #90 capsule 04/11/17 [Rx] 3 Allergy/AdvReac Type Severity Reaction Status Date / Time No Known Allergies Allergy Verified 12/11/17 20:40 Review of Systems Psychiatric: Reports: depression, anxiety, abnormal sleep pattern, suicidal ideation, hopelessness, other (Paranoia) Exam - HEENT Head exam IM: Present: atraumatic Eye exam IM: Present: EOMI, normal appearance, PERRL ENT exam IM: Present: normal exam - Neurological Neurological exam: Present: CN II-XII intact - Respiratory Respiratory exam IM: Present: CTAB - GI/Abdominal GI/Abdominal exam IM: Present: normal bowel sounds, soft. Absent: tenderness - Extremities Extremities exam IM: Present: full ROM - Skin Skin exam IM: Present: dry, warm - Constitutional Vitals: Temp Pulse Resp BP Pulse Ox 98.7 F 72 18 126/91 98 12/11/17 21:00 12/11/17 21:00 12/11/17 21:00 12/11/17 21:00 12/11/17 15:13 General appearance: age & developmentally appropriate, well-nourished, disheveled, bizarre, thin - Musculoskeletal Gait: normal Station: relaxed Strength & Tone: normal for patient - Psychiatric Patient Orientation: Yes Person, Yes Time, Yes Place Level of alertness: Alert Behavior: calm, cooperative, guarded, suspicious, distractible Psychomotor activity: Normal Eye Contact: Maintains Eye Contact Mood Description: Depressed, Anxious Affect description: congruent with mood, anxious Speech Volume: Normal Speech pattern: normal rate, normal rhythm, normal tone, fluent, spontaneous, limited Language & Vocabulary: consistent with education Thought Process: Linear, Goal Oriented Thought Content: Yes Suicidal ideation, No Homicidal ideation, No Overt delusions, Yes Preoccupation, Yes Paranoid delusion Perceptual Disturbances: No Auditory hallucinations, No Visual hallucinations Attention Span Ability: Capable of Focused Attention Memory Description: Grossly Intact Patient Reliability: Reliable Historian Fund of knowledge: Yes abstraction ability, Yes average, Yes aware of current events Intelligence Estimate: Average Judgment: Limited Insight: Partial Results - Labs Labs: Laboratory Last Values WBC 10.0 K/mcL (4.3-11.1) 12/11/17 15:54 RBC 4.89 M/mcL (4.19-5.50) 12/11/17 15:54 Hgb 13.9 g/dL (12.9-16.9) 12/11/17 15:54 Hct 40.7 % (37.5-50.1) 12/11/17 15:54 MCV 83.2 fL (83.0-100.0) 12/11/17 15:54 MCH 28.4 pg (28.0-33.3) 12/11/17 15:54 MCHC 34.2 g/dL (31.6-35.5) 12/11/17 15:54 RDW 13.7 % (11.5-14.5) 12/11/17 15:54 Plt Count 289 K/mcL (140-400) 12/11/17 15:54 MPV 9.6 fL (9.4-12.4) 12/11/17 15:54 Immature Gran % 0.4 % (0-4) 12/11/17 15:54 Seg Neutrophils % 72.0 % 12/11/17 15:54 Lymphocytes % 21.3 % 12/11/17 15:54 Monocytes % 5.6 % 12/11/17 15:54 Eosinophils % 0.4 % 12/11/17 15:54 Basophils % 0.3 % 12/11/17 15:54 Neutrophils # 7.2 K/mcL (1.6-8.9) 12/11/17 15:54 Lymphocytes # 2.1 K/mcL (0.6-4.6) 12/11/17 15:54 Monocytes # 0.6 K/mcL (0.0-1.3) 12/11/17 15:54 Eosinophils # 0.0 K/mcL (0.0-0.6) 12/11/17 15:54 Basophils # 0.0 K/mcL (0.0-0.2) 12/11/17 15:54 Sodium 140 mEq/L (136-145) 12/11/17 15:54 Potassium 3.7 mEq/L (3.5-5.1) 12/11/17 15:54 Chloride 106 mEq/L (98-107) 12/11/17 15:54 Carbon Dioxide 28 mEq/L (23-29) 12/11/17 15:54 BUN 8 mg/dL (6-20) 12/11/17 15:54 Creatinine 0.77 mg/dL (0.70-1.30) 12/11/17 15:54 Est GFR ( Amer) > 60 (> 60) 12/11/17 15:54 Est GFR (Non-Af Amer) > 60 (> 60) 12/11/17 15:54 BUN/Creatinine Ratio 10 (6-26) 12/11/17 15:54 Glucose 106 mg/dL (70-105) H 08/13/18 15:54 Calculated Osmolality 289 (280-300) 12/11/17 15:54 Calcium 9.4 mg/dL (8.6-10.3) 12/11/17 15:54 Urine Color Yellow (Yellow) 12/11/17 15:24 Urine Clarity Clear (Clear) 12/11/17 15:24 Urine pH 7.0 pH Units (5.0-8.0) 12/11/17 15:24 Ur Specific [place] 1.016 (1.010-1.025) 12/11/17 15:24 Urine Protein Negative mg/dL (Neg-Trace) 12/11/17 15:24 Urine Glucose (UA) Normal mg/dL (Normal) 12/11/17 15:24 Urine Ketones Negative mg/dL (Negative) 12/11/17 15:24 Urine Blood Negative (Negative) 12/11/17 15:24 Urine Nitrite Negative (Negative) 12/11/17 15:24 Urine Bilirubin Negative (Negative) 12/11/17 15:24 Urine Urobilinogen Normal mg/dL (Normal) 12/11/17 15:24 Ur Leukocyte Esterase Negative (Negative) 12/11/17 15:24 Salicylates < 2.5 mg/dL (15.0-30.0) L 12/11/17 15:54 Urine Opiates Screen Negative ng/mL (Itvicr=257) 12/11/17 15:47 Acetaminophen < 10 mcg/mL (10-20) L 12/11/17 15:54 Ur Barbiturates Screen Negative ng/mL (Pokdgu=821) 12/11/17 15:47 Ur Phencyclidine Scrn Negative ng/mL (Cutoff=25) 12/11/17 15:47 Ur Amphetamines Screen Negative ng/mL (Gfijbq=3390) 12/11/17 15:47 U Benzodiazepines Scrn Negative ng/mL (Nkejey=014) 12/11/17 15:47 Urine Cocaine Screen Negative ng/mL (Cutoff= 300) 12/11/17 15:47 U Marijuana (THC) Screen Negative ng/mL (Cutoff = 50) 12/11/17 15:47 Ur Drug Screen Interp See Below 12/11/17 15:47 Ethyl Alcohol < 10 mg/dL (Less than 10) 12/11/17 15:54 Assessment and Plan (1) Major depressive disorder with psychotic features Current visit: No Status: Acute Plan: Admit inpatient for safety and stabilization, Close observation, Suicide Precautions per unit protocol, Encourage participation in unit milieu, Group Therapy, Monitor sleep, Monitor appetite Additional Plan: We will start Paxil 20 mg daily and Zyprexa 10 mg at bedtime. Benefits and side effects were discussed with the patient is agreeable to start. We will monitor Risks, benefits, side effects, alternatives discussed w/pt: Yes Patient agreeable to treatment: Yes Estimated Length of Stay (Days): 5
[2017-12-12] MEDS: Nicotine 21 MG PATCH.TD24 TD SCH (11:43)
[2017-12-12] MEDS: traZODone 50 MG TABLET PO PRN (20:52)
[2017-12-12] MEDS: OLANZapine 10 MG TAB.RAPDIS PO SCH (20:53)
[2017-12-12] MEDS: Acetaminophen 325 MG TABLET PO PRN (20:53)
[2017-12-13] MEDS: Nicotine 21 MG PATCH.TD24 TD SCH (12:41)
--- NOTE | 2017-12-13 14:48 | Psychiatry Progress Note ---
Date of Encounter: 12/13/17 Time of Encounter: 14:44 Subjective Interval history: She has seen for follow-up. Case discussed with treatment team. Staff report patient is medication compliant and cooperative. He tolerated medication denies any side effects he reported feeling better. He reported improved sleep and appetite. He is showing some paranoia regarding taking medication but able to accept education and willing to continue treatment. He tell me he is interested in getting a job. But he has to pass drug screen. He was educated about sobriety and compliance with medication and treatment. He is receptive to education. Review of Systems Psychiatric: Reports: depression, anxiety, abnormal sleep pattern, suicidal ideation, hopelessness, other (Paranoia) Results - Vital Signs Vital Signs: Temp Pulse Resp BP Pulse Ox 98.4 F 74 16 112/76 98 12/13/17 09:00 12/13/17 09:00 12/13/17 09:00 12/13/17 09:00 12/11/17 15:13 Assessment and Plan (1) Major depressive disorder with psychotic features Current visit: No Status: Acute Plan: Continue hospitalization, Close observation, Suicide Precautions per unit protocol, Encourage participation in unit milieu, Group Therapy, Monitor sleep, Monitor appetite Risks, benefits, side effects, alternatives discussed w/pt: Yes Patient agreeable to treatment: Yes Consult Discharge Plan - Plan Referrals: NONE,PCP [Primary Care Provider] - Psychiatry Exam - Constitutional Vitals: Temp Pulse Resp BP Pulse Ox 98.4 F 74 16 112/76 98 12/13/17 09:00 12/13/17 09:00 12/13/17 09:00 12/13/17 09:00 12/11/17 15:13 General appearance: age & developmentally appropriate, well-groomed, well- nourished, thin - Musculoskeletal Gait: normal Station: relaxed Strength & Tone: normal for patient - Psychiatric Patient Orientation: Yes Person, Yes Time, Yes Place Level of alertness: Alert Behavior: calm, cooperative Psychomotor activity: Slowed Eye Contact: Maintains Eye Contact Mood Description: Euthymic/stable, Depressed Affect description: congruent with mood, blunted Speech Volume: Normal Speech pattern: normal rate, normal rhythm, normal tone, fluent, spontaneous, limited Language & Vocabulary: consistent with education Thought Process: Linear, Goal Oriented Thought Content: No Suicidal ideation, No Homicidal ideation, No Overt delusions , Yes Paranoid delusion Perceptual Disturbances: No Auditory hallucinations, No Visual hallucinations Attention Span Ability: Capable of Focused Attention Memory Description: Grossly Intact Patient Reliability: Reliable Historian Fund of knowledge: Yes abstraction ability, Yes aware of current events Intelligence Estimate: Average Judgment: Limited Insight: Partial
[2017-12-13] MEDS: hydrOXYzine pamoate 25 MG CAPSULE PO PRN (20:20)
[2017-12-13] MEDS: OLANZapine 10 MG TAB.RAPDIS PO SCH (20:20)
[2017-12-13] MEDS: traZODone 50 MG TABLET PO PRN (20:21)
[2017-12-13] MEDS: Acetaminophen 325 MG TABLET PO PRN (20:21)
[2017-12-14] MEDS: Nicotine 21 MG PATCH.TD24 TD SCH (09:00)
--- NOTE | 2017-12-14 12:54 | Psychiatry Progress Note ---
Date of Encounter: 12/14/17 Time of Encounter: 12:51 Subjective Interval history: Patient seen for follow-up. Case discussed with treatment team. Staff report patient is cooperative, medication compliant, participate in some groups. He self isolated in his room for most of the time. He tells me he is sleeping and eating better. Denied any paranoia or thoughts of suspicion. He had a visit with his family and it was a good visits. I educated him about's treatment medication and sobriety and he is receptive to instructions. He is interested in being busy and working after discharge. Denies any suicidal thoughts. Review of Systems Psychiatric: Reports: depression, anxiety, abnormal sleep pattern, suicidal ideation, hopelessness, other (Paranoia) Results - Vital Signs Vital Signs: Temp Pulse Resp BP Pulse Ox 98.3 F 77 16 122/20 98 12/14/17 09:00 12/14/17 09:00 12/14/17 09:00 12/14/17 09:00 12/11/17 15:13 Assessment and Plan (1) Major depressive disorder with psychotic features Current visit: No Status: Acute Plan: Continue hospitalization, Close observation, Suicide Precautions per unit protocol, Encourage participation in unit milieu, Group Therapy, Monitor sleep, Monitor appetite Risks, benefits, side effects, alternatives discussed w/pt: Yes Patient agreeable to treatment: Yes Consult Discharge Plan - Plan Referrals: [facility] [Outside] - 12/25/17 2:00 pm (The above appointment is with Adrianne Milligan for outpatient mental health counseling services. You will also see Keily Kurtz for outpatient psychiatric assessment and medication management services on 01/12/2018 at 1:00pm. Please arrive 30 minutes early for first time psychiatry appointments, and 15 minutes early for follow-up appointments. Please bring your photo ID (bring proof of address if you do not have an ID), insurance card and medication list. The above appointment(s) reflects first availability. You may contact the office regularly to check for cancellations that may allow you to be seen sooner. If you need to reschedule your counseling appointment with Adrianne, you may call her directly at [phone].) Psychiatry Exam - Constitutional Vitals: Temp Pulse Resp BP Pulse Ox 98.3 F 77 16 122/20 98 12/14/17 09:00 12/14/17 09:00 12/14/17 09:00 12/14/17 09:00 12/11/17 15:13 General appearance: age & developmentally appropriate, well-nourished, unkempt, bizarre, thin - Musculoskeletal Gait: normal Station: relaxed Strength & Tone: normal for patient - Psychiatric Patient Orientation: Yes Person, Yes Time, Yes Place Level of alertness: Alert Behavior: calm, cooperative Psychomotor activity: Normal Eye Contact: Maintains Eye Contact Mood Description: Euthymic/stable, Depressed Affect description: congruent with mood, constricted, blunted Speech Volume: Normal Speech pattern: normal rate, normal rhythm, normal tone, fluent, spontaneous, limited Language & Vocabulary: consistent with education Thought Process: Linear, Goal Oriented Thought Content: No Suicidal ideation, No Homicidal ideation, No Overt delusions Perceptual Disturbances: No Auditory hallucinations, No Visual hallucinations Attention Span Ability: Capable of Focused Attention Memory Description: Grossly Intact Patient Reliability: Reliable Historian Fund of knowledge: Yes abstraction ability, Yes aware of current events Intelligence Estimate: Average Judgment: Limited Insight: Partial
[2017-12-14] MEDS: traZODone 50 MG TABLET PO PRN (20:13)
[2017-12-14] MEDS: OLANZapine 10 MG TAB.RAPDIS PO SCH (20:13)
[2017-12-14] MEDS: hydrOXYzine pamoate 25 MG CAPSULE PO PRN (22:50)
[2017-12-15] MEDS: Nicotine 21 MG PATCH.TD24 TD SCH (09:02)
--- NOTE | 2017-12-15 12:25 | Psychiatry Progress Note ---
Date of Encounter: 12/15/17 Time of Encounter: 12:22 Subjective Interval history: Patient seen for follow-up. Case discussed with treatment team. Staff report patient is more interactive with peers and staff, he attended groups. He is medication compliant. Reported good sleep and appetite. He rates his depression as 3 out of 10. He denied any racing thoughts, less paranoid. Tolerating medication and denies any side effects. He is showing improvements insight. He is future oriented. Denied any suicidal thoughts. He enjoyed the visits from his family. Review of Systems Psychiatric: Reports: depression, anxiety, abnormal sleep pattern, suicidal ideation, hopelessness, other (Paranoia) Results - Vital Signs Vital Signs: Temp Pulse Resp BP Pulse Ox 98.2 F 65 20 131/81 98 12/15/17 08:33 12/15/17 08:33 12/15/17 08:33 12/15/17 08:33 12/11/17 15:13 Assessment and Plan (1) Major depressive disorder with psychotic features Current visit: No Status: Acute Plan: Continue hospitalization, Close observation, Suicide Precautions per unit protocol, Encourage participation in unit milieu, Group Therapy, Monitor sleep, Monitor appetite Risks, benefits, side effects, alternatives discussed w/pt: Yes Patient agreeable to treatment: Yes Consult Discharge Plan - Plan Referrals: [facility] [Outside] - 12/25/17 2:00 pm (The above appointment is with Adrianne Milligan for outpatient mental health counseling services. You will also see Keily Kurtz for outpatient psychiatric assessment and medication management services on 01/12/2018 at 1:00pm. Please arrive 30 minutes early for first time psychiatry appointments, and 15 minutes early for follow-up appointments. Please bring your photo ID (bring proof of address if you do not have an ID), insurance card and medication list. The above appointment(s) reflects first availability. You may contact the office regularly to check for cancellations that may allow you to be seen sooner. If you need to reschedule your counseling appointment with Adrianne, you may call her directly at .) Psychiatry Exam - Constitutional Vitals: Temp Pulse Resp BP Pulse Ox 98.2 F 65 20 131/81 98 12/15/17 08:33 12/15/17 08:33 12/15/17 08:33 12/15/17 08:33 12/11/17 15:13 General appearance: age & developmentally appropriate, well-groomed, well- nourished, thin - Musculoskeletal Gait: normal Station: relaxed Strength & Tone: normal for patient - Psychiatric Patient Orientation: Yes Person, Yes Time, Yes Place Level of alertness: Alert Behavior: calm, cooperative, withdrawn Psychomotor activity: Normal Eye Contact: Maintains Eye Contact Mood Description: Euthymic/stable Affect description: congruent with mood, blunted Speech Volume: Normal Speech pattern: normal rate, normal rhythm, normal tone, fluent, spontaneous Language & Vocabulary: consistent with education Thought Process: Linear, Goal Oriented Thought Content: No Suicidal ideation, No Homicidal ideation, No Overt delusions Perceptual Disturbances: No Auditory hallucinations, No Visual hallucinations Attention Span Ability: Capable of Focused Attention Memory Description: Grossly Intact Patient Reliability: Reliable Historian Fund of knowledge: Yes abstraction ability, Yes aware of current events Intelligence Estimate: Average Judgment: Limited Insight: Partial
[2017-12-15] MEDS: hydrOXYzine pamoate 25 MG CAPSULE PO PRN (20:18)
[2017-12-15] MEDS: OLANZapine 10 MG TAB.RAPDIS PO SCH (20:19)
[2017-12-16 08:50] VITALS: BP 113/82
[2017-12-16] MEDS: Nicotine 21 MG PATCH.TD24 TD SCH (08:53)
--- NOTE | 2017-12-16 11:03 | Discharge Summary ---
Date of Encounter: 12/16/17 Time of Encounter: 10:59 Diagnosis - Discharge Diagnosis (1) Major depressive disorder with psychotic features Status: Acute Medications - Discharge Medications Prescriptions: OLANZapine [Zyprexa Zydis] 10 mg PO HS #30 tab.rapdis Paroxetine [Paxil] 20 mg PO DAILY #30 tablet hydrOXYzine pamoate [HydrOXYzine Pamoate] 50 mg PO TID PRN #90 capsule 04/11/17 [Rx] OLANZapine [Zyprexa Zydis] 10 mg PO HS #30 tab.rapdis 12/16/17 [Rx] Paroxetine [Paxil] 20 mg PO DAILY #30 tablet 12/16/17 [Rx] 3 Allergy/AdvReac Type Severity Reaction Status Date / Time No Known Allergies Allergy Verified 12/11/17 20:40 Provider Date of admission: 12/11/17 20:37 Primary care physician: PCP NONE Discharging clinician: Michael Osuna Psychiatry Exam - Constitutional Vitals: Temp Pulse Resp BP Pulse Ox 98.4 F 77 16 113/82 98 12/16/17 08:50 12/16/17 08:50 12/16/17 08:50 12/16/17 08:50 12/11/17 15:13 General appearance: age & developmentally appropriate, well-groomed, well- nourished, thin - Musculoskeletal Gait: normal Station: relaxed Strength & Tone: normal for patient - Psychiatric Patient Orientation: Yes Person, Yes Time, Yes Place Level of alertness: Alert Behavior: calm, cooperative Psychomotor activity: Normal Eye Contact: Maintains Eye Contact Mood Description: Euthymic/stable Affect description: congruent with mood, full range Speech Volume: Normal Speech pattern: normal rate, normal rhythm, normal tone, fluent, spontaneous Language & Vocabulary: consistent with education Thought Process: Linear, Goal Oriented Thought Content: No Suicidal ideation, No Homicidal ideation, No Overt delusions Perceptual Disturbances: No Auditory hallucinations, No Visual hallucinations Attention Span Ability: Capable of Focused Attention Memory Description: Grossly Intact Patient Reliability: Reliable Historian Fund of knowledge: Yes abstraction ability, Yes aware of current events Intelligence Estimate: Average Judgment: Limited Insight: Partial Hospital Course Hospital course: Mr. Frank is a 42 year old male admitted from the emergency department for evaluation of severe depression and suicidal ideation and paranoia. For details of the admission please see H&P On the units patient was started on olanzapine and paroxetine, he tolerated the medication and responded well. He reported improved sleep and appetite, he became more interactive and less paranoid, he participated in some groups otherwise he isolated in his room. He was medication compliant and cooperative. He is ADLs improved. He was educated about medication compliance and substance abuse and sobriety. He was receptive to education. On discharge patient was medically stable, nonsuicidal and not paranoid. He was future oriented and displaying better insight and judgment. His discharge plans were completed by social work. He is discharged in stable condition. - Time Spent with Patient Total time spent providing and/or coordinating discharge services: Greater than 30 minutes Assessment and Plan - Patient/Caregiver Discharge Instructions Activity: resume usual activities as tolerated Diet: regular diet - Follow up Plan Follow up with: [facility] [Outside] - 12/25/17 2:00 pm (The above appointment is with Adrianne Milligan for outpatient mental health counseling services. You will also see Keily Kurtz for outpatient psychiatric assessment and medication management services on 01/12/2018 at 1:00pm. Please arrive 30 minutes early for first time psychiatry appointments, and 15 minutes early for follow-up appointments. Please bring your photo ID (bring proof of address if you do not have an ID), insurance card and medication list. The above appointment(s) reflects first availability. You may contact the office regularly to check for cancellations that may allow you to be seen sooner. If you need to reschedule your counseling appointment with Adrianne, you may call her directly at .) Functional capacity at discharge: independent ambulation Overall status at discharge: Stable Disposition: Home, Self-Care Quality - Multiple Antipsychotics Patient discharged on 2 or more antipsychotic medications: No Procedures - Procedures Procedures: Medication Management, Crisis Stabilization, Supportive Therapy, Group Therapy, Psychoeducational Therapy
== END 2017-12-16 11:35 | disposition home or self-care (01) | DRG 751 ==
LOC: EMEROOARM 15:10 → 1ANU 20:37
PROVIDERS: ADMIT Psychiatry & Neurology Psychiatry; ATTEND Psychiatry & Neurology Psychiatry